=== PATIENT | male | born 1950 | race Caucasian/White ===

== ENCOUNTER 2019-12-26 01:03 | Emergency (ER) | payer MEDICARE, SELFPAY ==
--- NOTE | ~2019-12-26 | CT_ITS ---
EXAMINATION: CT abdomen pelvis wo con DATE: 12/26/2019 02:06 INDICATION: Bilateral flank pain TECHNIQUE: Computed tomography (CT) of the abdomen and pelvis was performed without intravenous contr ast. Automated exposure control and iterative reconstruction technique were employed. The dose-length product was 1281.91 mGy-cm. COMPARISON: None FINDINGS: Mild bibasilar atelectasis, right greater than left. Heart size is normal. Atherosclerotic coronary a rtery calcification. No pericardial or pleural effusion. Gallstone at the neck of the otherwise wolfgang l-appearing gallbladder. Liver, spleen, pancreas and bilateral adrenal glands are normal. Small amoun t of gas within a duodenal diverticulum posterior to the head of the pancreas. Kidneys and ureters ar e normal with no urolithiasis, hydroureteronephrosis or perinephric/ureteral stranding. Matthew cathete r within the decompressed bladder. There is mild inflammatory stranding surrounding the bladder which could be due to cystitis either acute or chronic. Mild scattered colonic diverticulosis without crista cent inflammatory change to suggest diverticulitis. Small bowel and appendix are normal. No free intr aperitoneal gas or fluid. No pathologically enlarged abdominal or pelvic lymphadenopathy. Moderate claudia mbar spondylosis. IMPRESSION: 1. Mild inflammatory stranding surrounding the bladder which is decompressed around a Matthew catheter which could be related to cystitis either acute or chronic. Correlate with urinalysis. 2. No urolithiasis or other acute intra-abdominal/pelvic process. 3. Cholelithiasis. Reviewed, dictated and finalized at location A. IMPRESSION: 1. Mild inflammatory stranding surrounding the bladder which is decompressed ar ound a Matthew catheter which could be related to cystitis either acute or chroni c. Correlate with urinalysis. 2. No urolithiasis or other acute intra-abdominal/pelvic process. 3. Cholelithiasis.
[2019-12-26 01:16] VITALS: BP 211/101; PULSE 56; RESP 18; TEMP 37.2; O2SAT 98
--- NOTE | 2019-12-26 01:23 | ED.MALEGU ---
HPI - Male Genitourinary General Chief complaint: Urogenital-Male Stated complaint: I think i'm in kidney failure Time Seen by Provider: 12/26/19 01:06 Source: patient Mode of arrival: ambulatory Limitations: no limitations History of Present Illness HPI Narrative: Patient is a 69-year-old male complaining of unable to urinate for the past 48 hours. Patient states he has a history of BPH and has had similar episodes in the past. Patient states he has an appointment to see his urologist this week for his BPH. Patient also complaining of bilateral flank pain. Patient denies any nausea or vomiting, diarrhea or fever. Patient denies hematuria. Related Data Home Medications Medication Instructions Recorded Confirmed aspirin 81 mg tablet,delayed 81 mg PO DAILY 02/07/19 release atenolol 100 mg tablet 100 mg PO DAILY 02/07/19 Allergies Allergy/AdvReac Type Severity Reaction Status Date / Time ramipril Allergy Unknown Verified 11/21/15 14:42 No Known Allergies Allergy Unverified 10/25/12 12:56 Review of Systems Review of Systems: All systems reviewed & are unremarkable except as noted in HPI and below Constitutional: Constitutional: Denies body ache(s), Denies chills, Denies excessive sweating, Denies fatigue, Denies fever(s), Denies headache(s), Denies lethargy, Denies malaise, Denies weakness and Denies weight loss Eyes: Eyes: Denies blurry vision, Denies change in vision and Denies loss of vision ENT: Denies dizziness, Denies ear discharge, Denies headache(s), Denies lip swelling, Denies epistaxis, Denies nasal congestion, Denies neck pain, Denies throat swelling and Denies tongue swelling Cardiovascular: Cardiovascular: Denies chest pain, Denies chest pain at rest, Denies chest pain with activity, Denies diaphoresis, Denies rapid heart rate, Denies edema, Denies irregular heart rhythm, Denies lightheadedness, Denies palpitations, Denies dyspnea and Denies dyspnea on exertion Respiratory: Respiratory: Denies chest congestion, Denies cough, Denies hemoptysis, Denies dyspnea and Denies dyspnea on exertion Gastrointestinal: Gastrointestinal: Denies abdominal pain, Denies melena, Denies hematochezia, Denies diarrhea, Denies nausea, Denies vomiting and Denies hematemesis Musculoskeletal: Musculoskeletal: Denies abnormal gait, Denies deformity, Denies joint swelling, Denies limited range of motion, Denies neck pain and Denies numbness Neurologic: Denies Abnormal speech present, Denies abnormal gait, Denies confusion, Denies dizziness, Denies headache(s), Denies focal weakness, Denies loss of vision, Denies numbness, Denies Other visual disturbances, Denies Sensory deficit (Neuro) and Denies weakness Psychiatric: Psychiatric: Denies confusion, Denies depression, Denies auditory hallucinations, Denies homicidal ideation and Denies suicidal ideation Endocrine: Endocrine: Denies cold intolerance, Denies excessive sweating, Denies fatigue, Denies heat intolerance and Denies palpitations Hematologic/Lymphatic: Hematologic/Lymphatic: Denies easy bleeding and Denies easy bruising Allergic/Immunologic: Allergic/Immunologic: Denies lip swelling, Denies throat swelling and Denies tongue swelling [facility] Social History Social History Smoking status: Never smoker Alcohol intake: current Exam Const: General: cooperative, healthy appearing, comfortable, no acute distress, well developed, alert and awake; No confusion Orientation/consciousness: oriented to person, oriented to place, oriented to time, patient oriented x3 and No confusion Limitations: no limitations HENMT: Head: normal to inspection, normocephalic and atraumatic Ears: hearing grossly normal bilaterally, TM normal on the right and TM normal on the left General nose exam: Normal external nose present, Normal nares present and No nasal discharge present Face and sinus: normal facial exam Mouth: Yes Normal oral
[2019-12-26 01:42] LABS: Basophils Percent Auto 0.2 % (0.2-1.2); Eosinophils Percent Auto 0.3 % (0-4.4); Hematocrit 45.1 % (42.0-52.0); Hemoglobin 15.1 g/dL (14.0-18.0); Immature Granulocyte Absolute 0.05 K/mm3 (0.00-0.031); Immature Granulocyte Percent A 0.4 % (0-0.5); Lymphocytes Absolute Auto 0.74 K/mm3 (0.9-3.2); Lymphocytes Percent Auto 6.5 % (18.3-44.2); Mean Corpuscular HGB Conc 33.5 g/dl (32-36); Mean Corpuscular Hemoglobin 30.6 pg (26-34); Mean Corpuscular Volume 91.5 fl (80-100); Mean Platelet Volume 10.9 fl (7.4-10.4); Monocytes Absolute Auto 0.7 K/mm3 (0.1-0.6); Monocytes Percent Auto 6.3 % (2.6-8.5); Neutrophils Absolute Auto 9.9 K/mm3 (1.3-6.7); Neutrophils Percent Auto 86.3 % (45.5-73.1); Platelet Count Result 241 k/mm3 (150-375); Red Blood Count 4.93 M/mm3 (4.6-6.20); White Blood Count 11.5 K/mm3 (4.5-10.0)
[2019-12-26 01:46] LABS: Add Urine Microscopic? YES; Appearance Urine Clear (Clear); Bilirubin Urine Negative (Negative); Blood Urine 1+ (Negative); Color Urine Straw (Yellow); Glucose Urine UA Negative (Negative); Ketones Urine Negative (Negative); Leukocyte Esterase Ur Negative LEU/UL (Negative); Mucus Urine Rare /lpf; Nitrate Urine Negative (Negative); Protein Urine Negative (Negative); Specific Grav Ur 1.014 (1.001-1.035); Urobilinogen Urine Negative mg/dL (<2.0)
--- NOTE | 2019-12-26 01:49 | PC.NURSE ---
Matthew catheter inserted per provider order. 1600ml urine returned. Pt states he feels significant relief.
[2019-12-26 01:59] LABS: Anion Gap 7 mmol/L (8-16); Blood Urea Nitrogen 22 mg/dL (9-20); Calcium 9.6 mg/dL (8.4-10.2); Carbon Dioxide 29 mmol/L (22-30); Chloride 100 mmol/L (98-107); Estimated CRCL calculation 76 ml/min; Estimated Glomerular Filt Rate > 60; Glucose 142 mg/dL (75-110); Sodium 136 mmol/L (137-145)
--- NOTE | 2019-12-26 02:02 | PC.NURSE ---
Pt at CT scan at this time
[2019-12-26 02:15] VITALS: BP 157/81; PULSE 53; RESP 16; O2SAT 100
--- NOTE | 2019-12-26 02:48 | PC.NURSE ---
Leg bag placed per MD order for pt discharge. Pt to keep oliveros in place until he sees his urologist. Pt educated on oliveros care.
[2019-12-26 02:49] VITALS: BP 170/85; PULSE 50; RESP 16; TEMP 36.8; O2SAT 97
== END 2019-12-26 02:54 | disposition home or self-care (01) ==
PROVIDERS: Emergency Provider Emergency Medicine; PCP Internal Medicine
DX: R33.9 Retention of urine, unspecified (principal)
CPT/HCPCS: 36415; 51702; 74176; 80048; 81001; 85025; 99284

== ENCOUNTER 2020-01-16 08:44 | Outpatient (CLI) | payer MEDICARE, SELFPAY ==
--- NOTE | ~2020-01-16 | CT_ITS ---
EXAMINATION: CT abdomen pelvis w con EXAM DATE: 01/16/2020 09:38 INDICATION: Prostate cancer prostate cancer. TECHNIQUE: Spiral CT of the abdomen and pelvis was performed following intravenous injection of 100 m L Omnipaque 350. Axial, coronal and sagittal images were reviewed. The dose-length product (DLP) fo r this examination was 1285.67 mGy-cm. The exposure was tailored according to patient size (auto mA exposure control), and iterative reconstruction (ASIR) was used as additional dose reduction techniqu e. Comparison is made to prior examination from 12/26/2019. FINDINGS: The liver, spleen, adrenal glands and pancreas are unremarkable. There is cholelithiasis w ithin an otherwise unremarkable gallbladder. No evidence of obstructive biliary disease. Portal and splenic veins are patent. Kidneys enhance symmetrically. There is no hydronephrosis. The prostat e is unremarkable. The bladder is unremarkable. There is no retroperitoneal or pelvic lymphadenopat hy. There is mild to moderate scattered arteriosclerotic disease. The appendix is normal. Small duodenal diverticulum. The stomach and small bowel are unremarkable. Th ere is mild scattered colonic diverticulosis. There is no adjacent inflammatory change to suggest di verticulitis. There is expected amount of colonic stool. No free intraperitoneal gas. The heart i s normal in size. There are no pericardial or pleural effusions. The lung bases are unremarkable. There are no osteoblastic or osteolytic lesions identified. IMPRESSION: 1. No evidence of metastatic disease. 2. Colonic diverticulosis. 3. Cholelithiasis. Reviewed, dictated and finalized at location A. [employer]
--- NOTE | ~2020-01-16 | NM_ITS ---
EXAMINATION: NM bone scan whole body DATE: 01/16/2020 13:07 INDICATION: Prostate cancer. TECHNIQUE: 23.6 mCi Tc-99m HDP was administered intravenously. Delayed whole-body scintigrams were o btained. COMPARISON: CT abdomen and pelvis 01/16/2020, chest 2 views 01/16/2020 FINDINGS: There is joint-centered increased activity in the right ankle and left foot without radiogr aphic comparison, likely osteoarthritis. There is joint-centered increased activity in the spine, con sistent with osteoarthritis. There is joint-centered increased activity in the wrists and hands witho ut radiographic comparison, likely osteoarthritis. There is joint-centered increased activity in the acromioclavicular joints and right sternoclavicular joint, consistent with osteoarthritis. IMPRESSION: 1. No evidence of metastatic disease. Reviewed, dictated and finalized at location B. OGRAPHER MODEL
--- NOTE | ~2020-01-16 | XR_ITS ---
EXAMINATION: XR chest 2V EXAM DATE: 01/16/2020 09:28 INDICATION: Prostate cancer. TECHNIQUE: Frontal and lateral projections of the chest obtained and reviewed. Comparison is made to prior examination from 10/14/2019. FINDINGS: The lungs are clear. There are no pleural effusions. The cardiomediastinal silhouette is within normal limits. There is no pneumothorax suspected. There are no osteoblastic or osteolytic l esions identified. Patient has diffuse idiopathic skeletal hyperostosis (DISH). IMPRESSION: No acute cardiopulmonary findings. Reviewed, dictated and finalized at location A. ATER CHIEF
== END 2020-01-16 08:45 | disposition home or self-care (01) ==
PROVIDERS: PCP Internal Medicine; Visit Provider Urology
DX: C61 Malignant neoplasm of prostate (principal); K57.90 Diverticulosis of intestine, part unspecified, without perforation or abscess without bleeding; K80.20 Calculus of gallbladder without cholecystitis without obstruction
CPT/HCPCS: 71046; 74177; 78306; A9561; Q9967

== ENCOUNTER 2020-02-11 12:01 | Outpatient (CLI) | payer MEDICARE, SELFPAY ==
--- NOTE | 2020-02-11 13:23 | ECG_ITS ---
Measurements Intervals [place] Rate: 51 P: 45 MO: 157 QRS: 2 QRSD: 100 T: 24 QT: 412 QTc: 382 Interpretive Statements SINUS BRADYCARDIA CONSIDER INFERIOR INFARCT, AGE INDETERMINATE BASELINE ARTIFACT- I, II, III, AVR, AVL, AVF, V1-V6 ABNORMAL ECG Electronically Signed On 02-11-2020 14:13:05 WINCH STRIPPER by William Osuna D.O.
[2020-02-11 14:10] LABS: Add Urine Microscopic? NO; Appearance Urine Clear (Clear); Bilirubin Urine Negative (Negative); Blood Urine Negative (Negative); Color Urine Yellow (Yellow); Glucose Urine UA Negative (Negative); Ketones Urine Negative (Negative); Leukocyte Esterase Ur Negative LEU/UL (Negative); Nitrate Urine Negative (Negative); Protein Urine Negative (Negative); Specific Grav Ur 1.017 (1.001-1.035); Urobilinogen Urine Negative mg/dL (<2.0)
[2020-02-11 14:15] LABS: Basophils Percent Auto 0.5 % (0.2-1.2); Eosinophils Absolute Auto 0.1 K/mm3 (0-0.3); Eosinophils Percent Auto 2.2 % (0-4.4); Hematocrit 42.1 % (42.0-52.0); Hemoglobin 14.3 g/dL (14.0-18.0); Immature Granulocyte Absolute 0.01 K/mm3 (0.00-0.031); Immature Granulocyte Percent A 0.2 % (0-0.5); Lymphocytes Percent Auto 20.1 % (18.3-44.2); Mean Corpuscular Hemoglobin 30.7 pg (26-34); Mean Corpuscular Volume 90.3 fl (80-100); Mean Platelet Volume 11.6 fl (7.4-10.4); Monocytes Absolute Auto 0.8 K/mm3 (0.1-0.6); Monocytes Percent Auto 11.6 % (2.6-8.5); Neutrophils Absolute Auto 4.2 K/mm3 (1.3-6.7); Neutrophils Percent Auto 65.4 % (45.5-73.1); Platelet Count Result 212 k/mm3 (150-375); Red Blood Count 4.66 M/mm3 (4.6-6.20); Red Cell Distribution Width 13.2 % (11.5-14.5); White Blood Count 6.5 K/mm3 (4.5-10.0)
[2020-02-11 14:20] LABS: Alanine Aminotransferase 45 U/L (4-50); Albumin Level 3.8 g/dL (3.5-5.1); Alkaline Phosphatase 87 U/L (38-126); Anion Gap 1 mmol/L (8-16); Aspartate Amino Transferase 37 U/L (17-59); Bilirubin,Total 0.4 mg/dL (0.2-1.3); Blood Urea Nitrogen 20 mg/dL (9-20); Calcium 9.1 mg/dL (8.4-10.2); Carbon Dioxide 29 mmol/L (22-30); Chloride 105 mmol/L (98-107); Estimated Glomerular Filt Rate > 60; Glucose 158 mg/dL (75-110); Potassium 4.4 mmol/L (3.4-5.0); Sodium 135 mmol/L (137-145)
[2020-02-11 14:21] LABS: INR 0.9; Prothrombin Time 13.2 Seconds (11.1-14.7)
[2020-02-11 14:22] LABS: Partial Thromboplastin Time 24.5 SECONDS (22.3-36.8)
== END 2020-02-11 12:02 | disposition home or self-care (01) ==
LOC: ANHSURGERY 12:03
PROVIDERS: PCP Internal Medicine; Visit Provider Urology
DX: Z01.818 Encounter for other preprocedural examination (principal); C61 Malignant neoplasm of prostate; R00.1 Bradycardia, unspecified; Z51.81 Encounter for therapeutic drug level monitoring; Z79.899 Other long term (current) drug therapy
CPT/HCPCS: 36415; 80053; 81003; 85025; 85610; 85730; 86850; 86900; 86901; 93005

== ENCOUNTER 2020-02-18 02:22 | Outpatient (CLI) | payer MEDICARE, SELFPAY ==
[2020-02-18 18:35] LABS: SARS-CoV-2 RNA PCR Negative
== END 2020-02-18 02:23 | disposition home or self-care (01) ==
PROVIDERS: PCP Internal Medicine; Visit Provider Urology
DX: Z01.812 Encounter for preprocedural laboratory examination (principal); Z20.828 Contact with and (suspected) exposure to other viral communicable diseases
CPT/HCPCS: 87635; C9803; U0003

== ENCOUNTER 2020-02-21 00:58 | Day surgery (SDC) | payer MEDICARE, SELFPAY ==
--- NOTE | 2020-02-08 08:24 | P.HP_ITS ---
H&P: HPI History of Present Illness Date/Time: 02/08/20 08:24 Chief complaint: Prostate Cancer Narrative: Deandre Yoo is a 69 year old male with a recent PSA elevation to 23. Prostate ultrasound revealed the the prostate volume of 56 g. Biopsy revealed adenocarcinoma Bony 8 and 9 in [address] scan of the abdomen and pelvis, bone scan and chest x-ray showed no evidence of metastatic disease. After careful discussion of therapeutic options including active surveillance, radiation therapy in its various forms, androgen deprivation and robotic prostatectomy he has elected for the latter. He is aware that this may require a multiple modality approach to management of his high risk prostate cancer. He is aware of the risk of this procedure including, but not limited to, adverse cardiopulmonary events, morphology, rectal injury, erectile dysfunction and urinary incontinence. Review of Systems Cardiovascular: Cardiovascular: Denies chest pain, Denies lightheadedness, Denies palpitations and Denies dyspnea Respiratory: Respiratory: Denies dyspnea Gastrointestinal: Gastrointestinal: Denies diarrhea, Denies nausea and Denies vomiting Genitourinary: Genitourinary: Denies hematuria and Denies dysuria Endocrine: Endocrine: Denies palpitations [facility] Social History Social History (Reviewed 11/01/19 @ 14:57 by Tita Alexandre, [facility] [address]) Smoking status: Never smoker Alcohol intake: current Meds Home Medications and Allergies Home Medications Medication Instructions Recorded Confirmed Type aspirin 81 mg tablet,delayed 81 mg PO DAILY 02/07/19 History release ezetimibe 10 mg tablet 10 mg PO DAILY #30 tablet 11/01/19 11/01/19 Rx icosapent ethyl 1 gram capsule 1 gm PO BID #60 cap 11/01/19 11/01/19 Rx levothyroxine 112 mcg tablet 112 mcg PO DAILY #90 tablet 11/01/19 11/01/19 Rx metformin 500 mg tablet 500 mg PO BID #60 tablet 12/17/19 Rx cephalexin [Keflex] 250 mg PO Q12H #6 cap 12/26/19 Rx atenolol 100 mg tablet 100 mg PO DAILY #90 tablet 01/24/20 Rx Allergies Allergy/AdvReac Type Severity Reaction Status Date / Time ramipril Allergy Unknown Verified 11/21/15 14:42 No Known Allergies Allergy Unverified 10/25/12 12:56 Exam Const: General: no acute distress Resp: Effort & Inspection: normal respiratory effort GI: Inspection: non-distended GI Palp: No abdominal tenderness and No Guarding due to palpation present (GI) Auscultation: normal bowel sounds Assessment and Plan Assessment and plan (1) Prostate cancer: Code(s): C61 - Malignant neoplasm of prostate Status: Acute Assessment and Plan: * Robotic assisted radical retropubic prostatectomy with bilateral pelvic lymphadenectomy.
[2020-02-11 12:14] VITALS: BMI 37.2
[2020-02-11 13:21] VITALS: BP 164/82; PULSE 54; RESP 16; TEMP 37.2; O2SAT 97
[2020-02-21] VITALS (11 sets, daily range): BP systolic 147–205; BP diastolic 67–99; PULSE 57–79; RESP 12–20; TEMP 36.2–37.1; O2SAT 91–100
--- NOTE | 2020-02-21 06:29 | WPDHPUPDATE1 ---
History and Physical Update Update Date/Time: 02/21/20 06:29 History and Physical has been reviewed, including an updated exam of the patient. There are NO changes in the patient's condition. Risks, benefits, and alternatives have been discussed and questions answered. Patient agrees to proceed with procedure.
[2020-02-21 06:52] LABS: Glucose Point of Care 84 (65-105)
[2020-02-21] MEDS: LACTATED RINGERS 1,000 ML 30 ML IV CONT ×2 (06:55→12:18)
--- NOTE | 2020-02-21 07:00 | WPDANESEPPF ---
Anes - Initial Pre Proc Eval Procedure: Operation Date: 02/21/20 07:30 Proposed Procedures p Robotic Assisted Laparoscopic Prostatectomy With Bilateral Pelvic Lymph Node Dissection - Corona Sanchez MD Date/Time: 02/21/20 07:00 Surgeon: Corona Sanchez MD Pre Op Diagnosis: Prostate Cancer Patient Data Age: 69 Gender: M Height: 5 ft 9 in Weight: 114.3 kg Last Vital Signs Temp 37.2 C 02/11/20 13:21 Pulse 54 L 02/11/20 13:21 Resp 16 02/11/20 13:21 BP 164/82 H 02/11/20 13:21 Pulse Ox 97 02/11/20 13:21 Allergies Allergy/AdvReac Type Severity Reaction Status Date / Time Tcuslvr-Rne-Ldb Reductase Allergy Severe Muscle Pain Verified 02/21/20 06:37 Inhibitor metformin AdvReac Mild Diarrhea Verified 02/21/20 06:37 NSAIDS (Non-Steroidal AdvReac Mild Gastrointestinal Verified 02/21/20 06:37 Anti-Inflamma Upset Home Medications Medication Instructions Recorded Confirmed Type aspirin 81 mg tablet,delayed 81 mg PO QNOON 02/07/19 02/21/20 History release levothyroxine 112 mcg tablet 112 mcg PO DAILY #90 tablet 11/01/19 02/21/20 Rx alogliptin 25 mg PO QPM 02/11/20 02/21/20 History atenolol 125 mg PO QPM 02/11/20 02/21/20 History multivit with min-folic acid 1 tablet PO DAILY 02/11/20 02/21/20 History [Adult One Daily Multivitamin] omega 3-lrm-hji-fish oil [Fish Oil] 1 cap PO DAILY 02/11/20 02/21/20 History omeprazole 20 mg PO DAILY 02/11/20 02/21/20 History Laboratory Tests 02/21/20 06:51 POC Capillary Glucose 84 mg/dl mg/dl (65-105) Patient hx anesthesia problems: post op nausea/vomiting (50 years ago) Family hx anesthesia problems: none PMFSH Social History Social History Smoking status: Never smoker Alcohol intake: current Living arrangements: with family Spiritual care concerns: No Anes - Eval Final PreProcedure Day of Procedure 02/21/20 07:00 Patient weight: obese Heart: regular rate and rhythm Lungs: clear to auscultation Airway: Mallampati scale Neurological: alert and oriented Last oral intake: >/= 8 hours ASA classification: III Emergent: no Anesthetic plan: proceed Anesthesia type and monitoring: general ETT and standard monitoring Informed Consent: The patient's anesthetic plan and its attendant risks and benefits were discussed with the patient/family/POA. Questions were solicited and answers provided to the satisfaction of the patient/family/POA.
[2020-02-21] MEDS: ceFAZolin 2 GM/D5W 50 ML 2 GM/50 ML BAG IVPB (07:28)
--- NOTE | 2020-02-21 11:52 | PM.PROC ---
Procedure Note - Detailed Date of procedure: 02/21/20 Pre-op diagnosis: Prostate Cancer Post-op diagnosis: same Procedure performed: 1. Robotic assisted radical prostatectomy 2. Bilateral pelvic lymphadenectomy Description of procedure: The patient was brought to the operative suite, where he was prepped and draped in routine sterile fashion while in a dorsal lithotomy, deep Trendelenburg position. A supraumbilical 10 mm trocar was placed after insufflation of the abdomen with a Veress needle. Three robotic ports were then placed under direct vision. Two of these were placed in the right lower quadrant - 10 cm and 20 cm lateral to, and in line with, the umbilicus. A third robotic trocar was placed 10 cm to the left of the umbilicus, and 20 cm to the left of the umbilicus, a 12 mm standard laparoscopic trocar was placed to be used as an instruction assistant principal port. Lastly, a 5 mm trocar was placed in the left upper quadrant midway between the umbilicus and the left robotic trocar. Attention was then turned to the prostatectomy. I opted for a posterior approach in this patient. An incision was made in the parietal peritoneum along the posterior bladder/posterior prostate about 2 cm above the reflection of the peritoneum over the anterior rectum. The seminal vesicles and vas deferens were immediately identified. Dissection is undertaken in a fashion so as to avoid electrocautery as much as possible, particularly near the tips of the seminal vesicles. Dissection was also carried out in the midline so as to avoid any encounters with the ureters. The vas deferens and the seminal vesicles were dissected in their entirety to the base of the prostate. The plane anterior to Denoviller's fascia, anterior to the rectum and posterior to the prostate was then developed. I then dropped the bladder by incising the anterior parietal peritoneum just lateral to the median umbilical ligaments bilaterally. The bladder was dropped from the anterior abdominal and pelvic wall. The endopelvic fascia was identified and incised bilaterally, allowing for dissection of the posterior-lateral aspect of the prostate. On the left side, near the apex of the prostate, there is a suggestion of some adherence to pelvic sidewall. The puboprostatic ligaments were transected near their origin from the posterior pubic ramus. This posterior lateral dissection of the prostate is also undertaken in a fashion so as to avoid electrocautery as much as possible. The dorsal vein of the penis is then secured with an 0 -Vicryl ligature. Attention is then turned to the bladder neck. The anterior bladder neck is incised at the vesico-prostatic junction. The previously placed urethral catheter was drawn through the urethrotomy. A very small bladder neck was maintained throughout the remainder of this dissection. The posterior bladder neck was incised in a fashion so as to avoid any injury to the ureteral orifices. Again, the small aperture of the bladder neck was maintained. The previously dissected vas deferens and the seminal vesicles were brought through the posterior bladder neck incision. The lateral prostatic pedicles were then carefully dissected from the lateral aspect of the prostate bilaterally. The prostatic pedicles were secured with Weck clips and transected. The neurovascular bundles on the right side was carefully dissected from the posterior-lateral aspect of the prostate. Due to some perceived adherence of the posterior lateral aspect of the prostate on the left opted to sacrifice the left neurovascular bundle. The dorsal vein of the penis was incised with electrocautery. Using cold scissors, the urethra was incised. It was with this apical dissection there appeared to be gross adherence of prostatic tissue to the apex, left lateral pelvic wall and posteriorly to the anterior rectum. After withdrawing the previously placed urethral catheter, the posterior urethra was sharply incised, as was the rectaluret
[2020-02-21 12:24] LABS: Glucose Point of Care 143 (65-105)
[2020-02-21] MEDS: HYDROmorphone HCL INJ (*CRX) 1 MG/ML SYR 0.5 MG IV PUSH ×2 (13:08→13:13)
--- NOTE | 2020-02-21 13:20 | ADMGEN ---
This patient, Deandre Yoo, was admitted to Medical Room 258-01 from surgery. Patient/family oriented to hospital policies and general routines including ID bracelet, bed and alarms, visiting hours, pain management, procedures, bathroom and other care routines, personal items, smoking policy, room service/diet, and visiting hours. Reviewed plan of care Information on how to activate the Rapid Response Team has been discussed. Patient/Family are encouraged to report perceived risks to care and to ask questions if they do not understand what they are told or what they should do.
[2020-02-21] MEDS: MORPHINE SULFATE (*CRX) 2 MG/ML INJ 1 MG IV PUSH (14:04)
[2020-02-21] MEDS: LACTATED RINGERS 1,000 ML 125 ML IV CONT (14:04)
--- NOTE | 2020-02-21 17:30 | PC.NURSE ---
pt refusing for blood sugar to be checked and refusing any home meds at this time
--- NOTE | 2020-02-21 22:22 | PC.NURSE ---
pt refusing blood sugar checks at this time.
[2020-02-22] VITALS: BP 167/84; PULSE 69; RESP 20; TEMP 36.8; O2SAT 97
[2020-02-22 04:00] VITALS: BP 182/87; PULSE 83; RESP 22; TEMP 37; O2SAT 98
[2020-02-22] MEDS: LACTATED RINGERS 1,000 ML 125 ML IV CONT (04:38)
[2020-02-22 05:28] LABS: Hematocrit 39.8 % (42.0-52.0); Hemoglobin 13.5 g/dL (14.0-18.0)
[2020-02-22 05:44] LABS: Anion Gap 6 mmol/L (8-16); Blood Urea Nitrogen 17 mg/dL (9-20); Carbon Dioxide 32 mmol/L (22-30); Chloride 100 mmol/L (98-107); Estimated CRCL calculation 67 ml/min; Estimated Glomerular Filt Rate > 60; Glucose 129 mg/dL (75-110); Potassium 3.9 mmol/L (3.4-5.0); Sodium 138 mmol/L (137-145)
--- NOTE | 2020-02-22 07:17 | WPDUROPN2 ---
Progress Note: A&P Assessment and Plan (1) Prostate cancer: Code(s): C61 - Malignant neoplasm of prostate Status: Acute Assessment and Plan: Doing well POD #1 RALP. Increase diet/ambulation. Likely home later today. Scant/diminishing drainage - will remove. Subjective Subjective Date/Time Seen: 02/22/20 07:17 POD #1: RALP Comfortable, no n/v and minimal abd. discomfort Review of Systems Cardiovascular: Cardiovascular: Denies chest pain, Denies lightheadedness, Denies palpitations and Denies dyspnea Respiratory: Respiratory: Denies dyspnea Gastrointestinal: Gastrointestinal: Denies diarrhea, Denies nausea and Denies vomiting Genitourinary: Genitourinary: Denies hematuria and Denies dysuria Endocrine: Endocrine: Denies palpitations Exam Const: General: no acute distress Resp: Effort & Inspection: normal respiratory effort GI: Inspection: non-distended and other (incisions clean and dry) GI Palp: No abdominal tenderness and No Guarding due to palpation present (GI) Auscultation: normal bowel sounds Objective Data Vital Signs Vital Signs: Vital Signs - 24 hr 02/21/20 12:18 02/21/20 12:30 02/21/20 12:45 Temperature 97.2 F L Pulse Rate 79 66 64 Respiratory Rate 12 19 17 Blood Pressure 205/99 H 189/94 H 177/83 H Pulse Oximetry 97 100 97 02/21/20 13:00 02/21/20 13:14 02/21/20 13:16 Temperature Pulse Rate 64 65 67 Respiratory Rate 15 14 16 Blood Pressure 157/76 H 156/76 H 149/70 H Pulse Oximetry 97 100 91 02/21/20 13:31 02/21/20 14:01 02/21/20 15:01 Temperature 98.7 F Pulse Rate 65 63 57 L Respiratory Rate 16 18 18 Blood Pressure 156/79 H 151/80 H 160/73 H Pulse Oximetry 91 93 93 02/21/20 20:00 02/22/20 00:00 02/22/20 04:00 Temperature 98 F 98.2 F 98.6 F Pulse Rate 75 69 83 Respiratory Rate 20 20 22 H Blood Pressure 147/67 H 167/84 H 182/87 H Pulse Oximetry 98 97 98 Intake/Output Intake/Output: Intake & Output 02/19/20 02/20/20 02/21/20 02/22/20 23:59 23:59 23:59 23:59 Intake Total 1900 500 Output Total 970 0 Balance 930 -1550 Meds/Results Medications: Active Medications Generic Name Dose Route Start Last Admin Trade Name Freq PRN Reason Stop Dose Admin Acetaminophen 1,000 mg 02/21/20 18:43 Acetaminophen 500 Mg Tablet PO Q6H PRN Mild Pain (1-3) or Fever Atenolol 100 mg 02/21/20 18:00 02/21/20 18:45 Atenolol 50 Mg Tablet PO Not Given QPM NICHOLE Dextrose 12.5 gm 02/21/20 13:16 Dextrose 50% 25 Gm/50 Ml Syringe IV PUSH PRN PRN Hypoglycemia Protocol Glucagon 1 mg 02/21/20 13:16 Glucagon For Inj 1 Mg Vial IM PRN PRN Hypoglycemia Protocol Glucose 15 gm 02/21/20 13:16 Glucose Oral Gel 15 Gm Of Glucse In 37.5 Gm Tube PO PRN PRN Hypoglycemia Protocol Hyoscyamine 0.125 mg 02/21/20 13:16 Hyoscyamine Sulfate 0.125 Mg Tablet SUBLINGUAL Q4H PRN Bladder Spasm Dextrose 1,000 mls @ 100 mls/hr 02/21/20 13:16 Dextrose 5% 1,000 Ml IVPB PRN PRN Hypoglycemia Protocol Lactated Ringer's 1,000 mls @ 125 mls/hr 02/21/20 13:16 02/22/20 04:38 Lr - Lactated Ringers Iv IV CONT 125 mls/hr .Q8H NICHOLE Administration Insulin Aspart 2 - 5 units 02/21/20 17:00 02/21/20 17:30 Insulin Aspart (*Bkc) 100 Units/Ml SUB-Q Not Given TIDWM [facility] Protocol Levofloxacin 500 mg 02/22/20 09:00 Levofloxacin Tab 500 Mg Tablet PO DAILY [facility] Levothyroxine Sodium 112 mcg 02/22/20 06:30 02/22/20 06:18 Levothyroxine Sodium 112 Mcg Tablet PO Not Given DAILY@0630 [facility] Morphine Sulfate 1 mg 02/21/20 13:16 02/21/20 14:04 Morphine Sulfate (*Crx) 2 Mg/Ml Inj IV PUSH 1 mg Q2H PRN Administration Pain Rated 7-10 Naloxone HCl 0.1 mg 02/21/20 13:16 Naloxone Hcl 0.4 Mg/Ml Vial IV PUSH Q2M PRN Opiate Reversal Pantoprazole Sodium 40 mg 02/22/20 09:00 Pantoprazole 40 Mg Table
--- NOTE | 2020-02-22 07:37 | PC.NURSE ---
patient refused levothyroxine 02/22/2020 Dr. Anthony has been informed.
--- NOTE | 2020-02-22 09:33 | PM.DS ---
DS: Admitting Diagnosis Admitting Diagnosis Admitting Diagnosis: Prostate cancer DS: Discharge Diagnosis Discharge Diagnosis (1) Prostate cancer: Code(s): C61 - Malignant neoplasm of prostate Status: Acute (2) Essential (primary) hypertension: Code(s): I10 - Essential (primary) hypertension Status: Acute (3) History of TIA (transient ischemic attack): Code(s): Z86.73 - Personal history of transient ischemic attack (TIA), and cerebral infarction without residual deficits Status: Acute (4) Hyperlipidemia, unspecified: Qualifiers: Hyperlipidemia type: other hyperlipidemia Qualified Code(s): E78.49 - Other hyperlipidemia Code(s): E78.5 - Hyperlipidemia, unspecified Status: Acute (5) Hypothyroidism (acquired): Code(s): E03.9 - Hypothyroidism, unspecified Status: Acute (6) Type 2 diabetes mellitus with diabetic neuropathy, without long-term current use of insulin: Code(s): E11.40 - Type 2 diabetes mellitus with diabetic neuropathy, unspecified Status: Acute (7) Overweight: Onset Date: 09/20/16 Code(s): E66.3 - Overweight Status: Acute DS: Summary Hospital Course Hospital Course: This patient was admitted on the morning of his planned robotic prostatectomy. This procedure was uneventful, as was his postoperative course. By the evening of the procedure he was sitting at the bedside in tolerating a liquid diet. The following morning he was ambulating freely and tolerating regular food. His catheter drainage remained essentially clear throughout. His postoperative hemoglobin and serum creatinine were unremarkable. At the time of discharge he has been instructed in appropriate care for his Matthew catheter with both a leg bag and bedside bag. He will be discharged with plans to follow-up in 1 week with a cystogram. Time Spent with Patient Time attestation: Total time spent providing and/or coordinating discharge services:15 min. Condition on discharge: good This patient was admitted on the morning of his planned robotic prostatectomy. This procedure was uneventful, as was his postoperative course. By the evening of the procedure he was sitting at the bedside in tolerating a liquid diet. The following morning he was ambulating freely and tolerating regular food. His catheter drainage remained essentially clear throughout. His postoperative hemoglobin and serum creatinine were unremarkable. At the time of discharge he has been instructed in appropriate care for his Matthew catheter with both a leg bag and bedside bag. He will be discharged with plans to follow-up in 10 days with a cystogram. Exam Const: General: no acute distress Resp: Effort & Inspection: normal respiratory effort GI: Inspection: non-distended GI Palp: No abdominal tenderness and No Guarding due to palpation present (GI) Auscultation: normal bowel sounds DS: Data Data Completed and Pending Pending studies at discharge: Pending at discharge 02/21/20 09:24 Surgical [PTH] Routine Labs on day of discharge: Labs from last 24 hours 02/22/20 02/22/20 02/21/20 05:05 05:05 12:22 Hgb 13.5 L Hct 39.8 L Sodium 138 Potassium 3.9 Chloride 100 Carbon Dioxide 32 H Anion Gap 6 L BUN 17 Creatinine 1.10 Estim Creat Clear Calc 67 Estimated GFR > 60 Glucose 129 H POC Capillary Glucose 143 H Calcium 9.0 Discharge Plan Discharge Patient Disposition: Home, Self-Care Discharge Instructions: 1) Matthew catheter -> leg bag / bedside bag at night. 2) No lifting/straining >15lbs. x3 weeks. 3) No driving x1-week. 4) Resume normal, pre-operative diet. 5) My office will contact regarding follow-up in 1-week with cystogram. Stand Alone Forms: General Discharge Instructions Discharge Medications: New ciprofloxacin HCl 500 mg tablet 500 mg PO Q12H Qty: 10 RF: 0 docusate sodium [Co
== END 2020-02-22 09:51 | disposition home or self-care (01) ==
LOC: ANHSURGERY 06:02 → ANH2MED 13:49
PROVIDERS: PCP Internal Medicine; Visit Provider Urology
PROC: 0VT04ZZ Resection of Prostate, Percutaneous Endoscopic Approach (ICD-10-PCS; CPT 55867; principal; 2020-02-21 07:30)
DX: C61 Malignant neoplasm of prostate (principal); E03.9 Hypothyroidism, unspecified; Z79.82 Long term (current) use of aspirin; Z79.84 Long term (current) use of oral hypoglycemic drugs; E66.9 Obesity, unspecified; Z68.35 Body mass index [BMI] 35.0-35.9, adult
CPT/HCPCS: 55866; 38571; S2900; 36415; 80048; 80053; 81003; 85014; 85018; 85025; 85610; 85730; 86850; 86900; 86901; 87635; 88305; 88307; 88309; 88342; 93005; A9270; C9803; J0131; J0330; J0690; J1100; J1170; J1200; J2250; J2270; J2405; J2704; J2710; J3010; J7030; J7120; Q9968; U0003

== ENCOUNTER 2020-03-03 11:02 | Outpatient (CLI) | payer MEDICARE, SELFPAY ==
--- NOTE | ~2020-03-03 | XR_ITS ---
EXAMINATION: CYSTOGRAM DATE: 03/03/2020 11:48 INDICATION: Bladder cancer follow-up TECHNIQUE: Initial turkey egg gatherer radiograph of the pelvis was performed. There was retrograde administration of Omnipaque 350 mixed with saline contrast into patient's existing oliveros catheter. Fluoroscopic asad ges of the pelvis were obtained. A post-void postoperative image was also performed. Fluoroscopy expo sure time was 1.2 minutes. A total of 12 fluoroscopic images were recorded. FINDINGS: Line there is localized extraluminal accumulation of contrast posteriorly at the base of th e bladder consistent with bladder leak at the prostatectomy bed. There is a small post void residual of contrast in the bladder which may be secondary to chronic outlet obstruction. Severe lower lumbar facet osteoarthritis. IMPRESSION: Bladder leak extending posteriorly at the prostatectomy bed. Reviewed, dictated and finalized at location A. O INSPECTOR
== END 2020-03-03 11:03 | disposition home or self-care (01) ==
PROVIDERS: PCP Internal Medicine; Visit Provider Urology
DX: C61 Malignant neoplasm of prostate (principal)
CPT/HCPCS: 51600; 74430; Q9967

== ENCOUNTER 2020-06-18 17:19 | Outpatient (CLI) | payer MEDICARE, SELFPAY | END 2020-06-18 17:20 | disposition home or self-care (01) | LOC: ANHCOVIDVC 17:19 | PROVIDERS: PCP Internal Medicine | DX: Z23 Encounter for immunization (principal) | CPT/HCPCS: 0001A; 91300 ==

== ENCOUNTER 2020-07-09 17:16 | Outpatient (CLI) | payer MEDICARE, SELFPAY | END 2020-07-09 17:17 | disposition home or self-care (01) | LOC: ANHCOVIDVC 17:16 | PROVIDERS: PCP Internal Medicine | DX: Z23 Encounter for immunization (principal) | CPT/HCPCS: 0002A; 91300 ==

== ENCOUNTER 2022-01-29 19:20 | Emergency (ER) | payer MEDICARE, SELFPAY | END 2022-01-29 21:13 | disposition left against medical advice (07) | PROVIDERS: PCP Internal Medicine | DX: Z53.21 Procedure and treatment not carried out due to patient leaving prior to being seen by health care provider (principal) | CPT/HCPCS: 99199 ==

== ENCOUNTER 2022-02-05 15:03 | Outpatient (CLI) | payer MEDICARE, SELFPAY ==
--- NOTE | ~2022-02-05 | CT_ITS ---
EXAMINATION: CT abdomen pelvis wo con DATE: 02/05/2022 15:30 INDICATION: Left flank pain. TECHNIQUE: Computed tomography (CT) of the abdomen and pelvis was performed without intravenous contr ast. The dose-length product was 1255.70 mGy-cm. Automated exposure control and iterative reconstruct ion technique were employed. COMPARISON: CT dated 01/16/2020. FINDINGS: Lung bases are unremarkable. No significant pleural or pericardial effusion. Heart size nor mal. The liver, spleen, pancreas, adrenal glands aren't right kidney are unremarkable. There is mild left hydroureteronephrosis with mild periureteral edema. No obstructing stone or mass is seen. Prosta te gland is enlarged. Cannot exclude bladder wall thickening. There appears to be a stone at the blad smita neck, possibly recently passed. There is a bladder stone near the fundus. Gallstones. Nonobstructive bowel pattern. Normal appendix. No free air or free fluid. There is mild p erivesical stranding suggesting cystitis. Mild bladder wall thickening posteriorly. IMPRESSION: 1. Bladder stones. Mild left hydroureteronephrosis with periureteral edema, likely sequela of recentl y passed stone. Ascending urinary tract infection not excluded. 2: Enlarged prostate gland. Mild bladder wall thickening which may be due to outlet obstruction or c ystitis. 3: Gallstones. Reviewed, dictated and finalized at location A. NERET PERSON IMPRESSION: 1. Bladder stones. Mild left hydroureteronephrosis with periureteral edema, lik dena sequela of recently passed stone. Ascending urinary tract infection not exc luded. 2: Enlarged prostate gland. Mild bladder wall thickening which may be due to o utlet obstruction or cystitis. 3: Gallstones.
--- NOTE | ~2022-02-05 | XR_ITS ---
XR abdomen/kub 1V DATE: 02/05/2022 15:40 INDICATION: Left flank pain. Possible kidney stones. TECHNIQUE: 2 supine AP views of the abdomen COMPARISON: 02/05/[address] abdomen pelvis FINDINGS: No apparent renal calcification is noted. No apparent calcification overlying the course of the ureters. There is some gas containing nondilated small bowel segments which may be due to mild adynamic ileus or aerophagia. No visceromegaly is evident. Degenerative changes of the thoracic and lumbar spine. IMPRESSION: Nonspecific abdomen Reviewed, dictated and finalized at Location A. Reviewed, dictated and finalized at location B. ENTIALING ASSISTANT IMPRESSION: Nonspecific abdomen
== END 2022-02-05 15:04 | disposition home or self-care (01) ==
PROVIDERS: PCP Internal Medicine; Visit Provider Nurse Practitioner Family
DX: K80.80 Other cholelithiasis without obstruction (principal); N21.0 Calculus in bladder; N13.30 Unspecified hydronephrosis; N40.0 Benign prostatic hyperplasia without lower urinary tract symptoms
CPT/HCPCS: 74018; 74176

== ENCOUNTER 2022-02-25 01:15 | Day surgery (SDC) | payer MEDICARE, SELFPAY ==
[2022-02-19 11:43] VITALS: BMI 37.0
--- NOTE | 2022-02-19 12:01 | PC.NURSE ---
Report to the Outpatient Waiting Room, entrance under the green pavilion located off [facility], at time __1000 on date _02/25/22 . Planned Procedure Time: ___1200 . Time changes happen often and if your time is changed the preop area will call you the afternoon before. - You and your visitor will be asked to self-screen and do not enter if you have any COVID symptoms. - Only one visitor is requested with a max of two and NO children visitors are allowed at this time. - The patient visitor may be requested to leave or wait in car when not with patient due to distancing restrictions. - A mask is optional within the hospital. Patients may have clear liquids (water, carbonated beverages, clear teas, apple juice) until 3 hours prior to surgery (0900 AM) with a maximum of 20 ounces. - No food from midnight until time of surgery - Infants may have breast milk until 4 hours before surgery, formula 6 hours prior to surgery. - Children will be allowed to drink immediately following surgery. If applicable, please bring a bottle or sippy cup to assist with drinking. Juice, water, soda, and popsicles are readily available. For infants on formula, please bring formula the day of surgery. Pacifiers are allowed. Take the following medications with a SIP of water the morning of surgery: __LEVOTHYROXINE, PAIN MED IF NEEDED__ Medications to discontinue per physician _ASPIRIN, VITAMINS, SUPPLEMENTS PER DR. WHARTON'S INSTRUCTIONS_ Date to take last dose____ Please no make-up, nail australian, hairspray, perfume, deodorant, or body powder the day of surgery. No jewelry (including any body piercings) or valuables the day of surgery, leave them at home. Please take a shower or bath the night before, or the morning of, surgery with an antibacterial soap. Wear comfortable, loose fitting clothing. Children are encouraged to wear pajamas. - Jewelry must be removed prior to entering the operating room. Rings and piercings that are not removed may be cut off. - The hospital will not accept responsibility for valuables. - Please leave all valuables, including medications, at home the day of surgery. If you are going home after surgery, a licensed van cdl driver must drive you home. - NO public transportation without another adult if you receive anesthesia. - We recommend that an adult stay with you for 24 hours following discharge. - We also recommend that you do not drive, make important decision, drink alcoholic beverages, or take any drugs that were not prescribed by your health care provider for at least 24 hours after your discharge time. For Pediatric surgeries, we recommend two adults accompany the child home. Follow any additional instructions given to you from your surgeon. If you or anyone in your household have experienced Covid symptoms in the past week, please notify your surgeon or the nurse liaison at the phone number below for possible testing. Telephone instructions given to ____PT and asked if any additional questions and then verbalized understanding. Patient advised to call surgeon office or pre surgery nurse liaison [phone] if any additional questions.
--- NOTE | 2022-02-24 15:11 | SUR.PREOP ---
SPOKE WITH PT. PT INFORMED TO CALL PRIOR TO ENTERING THE BUILDING, GIVEN LUCINDAS PHONE NUMBER. PT STATES UNDERSTANDING.
[2022-02-25] VITALS (11 sets, daily range): BP systolic 127–189; BP diastolic 72–97; PULSE 54–71; RESP 12–18; TEMP 36.9–37.3; O2SAT 96–100
--- NOTE | ~2022-02-25 | XR_ITS ---
EXAMINATION: XR fluoroscopy no charge DATE: 02/25/2022 11:56 INDICATION: Prostate cancer. Bladder neck contracture. Hydronephrosis. TECHNIQUE: 2 intraoperative fluoroscopic views of the abdomen and pelvis were obtained. COMPARISON: CT abdomen and pelvis 02/05/2022 FINDINGS: There is no visible urolithiasis. IMPRESSION: 1. No visible urolithiasis. Reviewed, dictated and finalized at location A. OSAL MANAGER IMPRESSION: 1. No visible urolithiasis.
--- NOTE | 2022-02-25 10:21 | ECG_ITS ---
Measurements Intervals [place] Rate: 68 P: 52 MS: 141 QRS: 2 QRSD: 104 T: 28 QT: 409 QTc: 437 Interpretive Statements SINUS RHYTHM NORMAL ECG COMPARED TO ECG 02/11/2020 14:11:35 SINUS RHYTHM NOW PRESENT Electronically Signed On 02-25-2022 13:41:33 RAG SHREDDER by Jordan Levy M.D.
[2022-02-25 10:51] LABS: Glucose Point of Care 137 mg/dl (65-105)
--- NOTE | 2022-02-25 11:01 | WPDHPUPDATE1 ---
History and Physical Update Update Date/Time: 02/25/22 11:01 History and Physical has been reviewed, including an updated exam of the patient. There are NO changes in the patient's condition. Risks, benefits, and alternatives have been discussed and questions answered. Patient agrees to proceed with procedure.
--- NOTE | 2022-02-25 11:02 | WPDANESEPPF ---
Anes - Initial Pre Proc Eval Procedure: Operation Date: 02/25/22 12:00 Proposed Procedures p Cystoscopy, Urethral Dilatation, Left Retrograde Pyelogram - Corona Sanchez MD Date/Time: 02/25/22 11:02 Surgeon: Corona Sanchez MD Pre Op Diagnosis: prostate cancer Patient Data Age: 71 Gender: M Height: 1.75 m Weight: 109 kg Last Vital Signs Temp 37.3 C 02/25/22 10:43 Pulse 70 02/25/22 10:43 Resp 16 02/25/22 10:43 BP 179/81 H 02/25/22 10:43 Pulse Ox 96 02/25/22 10:43 O2 Del Method Room Air 02/25/22 10:43 Allergies Allergy/AdvReac Type Severity Reaction Status Date / Time alogliptin Allergy Severe Swelling Verified 02/25/22 10:09 Ecjxtqy-QMK-CwI Reductase Allergy Severe Muscle Pain Verified 02/25/22 10:09 Inhibitor [Qkwjutd-Dgd-Krp Reductase Inhibitor] metformin AdvReac Mild Diarrhea Verified 02/25/22 10:09 NSAIDS (Non-Steroidal AdvReac Mild Gastrointestinal Verified 02/25/22 10:09 Anti-Inflamma Upset Home Medications Medication Instructions Recorded Confirmed Type aspirin 81 mg tablet,delayed 81 mg PO QNOON 02/07/19 02/25/22 History release (Aspir-) multivitamin with minerals-folic 1 tablet PO DAILY 02/11/20 02/25/22 History acid 0.4 mg tablet (Adult One Daily Multivitamin) omega 6-sap-onx-fish oil 60 mg-90 1 cap PO DAILY 02/11/20 02/25/22 History mg-500 mg capsule (Fish Oil) omeprazole 20 mg tablet,delayed 20 mg PO DAILY 02/11/20 02/25/22 History release atenolol 100 mg tablet 50 mg PO QPM #90 tabs 10/16/21 02/25/22 Rx levothyroxine 112 mcg tablet 112 mcg PO DAILY #90 tabs 02/01/22 02/25/22 Rx Tylenol # 3 1 tab-cap QID PRN Pain 02/19/22 02/25/22 History tamsulosin 0.4 mg capsule (Flomax) 0.4 mg PO HS 02/19/22 02/25/22 History Laboratory Tests 02/25/22 02/25/22 10:40 10:47 Sodium Pending Potassium Pending Chloride Pending Carbon Dioxide Pending Anion Gap Pending BUN Pending Creatinine Pending Estim Creat Clear Calc Pending Estimated GFR Pending Glucose Pending POC Capillary Glucose 137 mg/dl H mg/dl (65-105) Calcium Pending Patient hx anesthesia problems: post op nausea/vomiting Family hx anesthesia problems: none Results Review: All pre-operative results and documents have been reviewed as part of the pre-operative evaluation. [facility] Past Medical History Medical History Asbestos exposure Essential (primary) hypertension GERD (gastroesophageal reflux disease) History of TIA (transient ischemic attack) Hyperlipidemia, unspecified Hypothyroidism (acquired) Overweight (09/20/16) Prostate cancer Type 2 diabetes mellitus with diabetic neuropathy, without long-term current use of insulin Surgical History Surgical History H/O prostatectomy History of tonsillectomy Social History Social History Smoking status: Never smoker Second hand tobacco smoke exposure: No Alcohol intake: former Alcohol use details: QUIT 2019 Substance use: never Substance use type: does not use Lack of Transportation: No Lack of Food: Never True Current Housing: I Have Housing Concerned About Future Housing: No Difficulty Paying Gas/Electric Bills: No Difficulty Paying for Meds: No Currently Unemployed: No Education: Associate Degree Difficulty w/ Childcare or Family Care: No Living arrangements: with family Gender identity (if verbalized by the patient): Male Sexual Orientation (if Verbalized by the Patient): Straight or Heterosexual Spiritual care concerns: No Anes - Eval Final PreProcedure Day of Procedure 02/25/22 11:02 Patient weight: obese Heart: regular rate and rhythm Lungs: decreased breath sounds Airway: Mall
[2022-02-25 11:08] LABS: Anion Gap 4 mmol/L (8-16); Blood Urea Nitrogen 24 mg/dL (9-20); Carbon Dioxide 29 mmol/L (22-30); Chloride 97 mmol/L (98-107); Estimated CRCL calculation 40 ml/min; Estimated Glomerular Filt Rate 37; Glucose 149 mg/dL (65-110); Potassium 3.9 mmol/L (3.4-5.0); Sodium 130 mmol/L (137-145)
[2022-02-25] MEDS: FAMOTIDINE 20 MG/2 ML VIAL IV PUSH (11:16)
[2022-02-25] MEDS: ONDANSETRON INJ 4 MG/2 ML VIAL IV PUSH (11:16)
[2022-02-25] MEDS: diphenhydrAMINE HCl INJ 50 MG/ML VIAL 12.5 MG IV PUSH (11:16)
[2022-02-25] MEDS: ceFAZolin 2 GM/D5W 50 ML 2 GM/50 ML BAG IVPB (11:21)
[2022-02-25] MEDS: DEXAMETHASONE SOD PHOS INJ 4 MG/ML VIAL IV PUSH (11:21)
[2022-02-25] MEDS: LIDOCAINE HCL 2% GEL UROJET 10 ML PKG MUCOUS MEM (11:38)
[2022-02-25] MEDS: LACTATED RINGERS 1,000 ML 30 ML IV CONT (11:59)
--- NOTE | 2022-02-25 12:19 | P.OP_ITS ---
Procedure Note - Detailed Date of Procedure 02/25/22 Pre-op Diagnosis Prostate cancer, bladder neck contracture, possible left ureteral stone Post-op Diagnosis Other (Bladder neck contracture) Procedure Performed Cystoscopy, dilatation of bladder neck contracture Surgeon Corona Sanchez MD Anesthesia General Description of Procedure patient is brought to the operative suite where he has prepped draped in routine sterile fashion while in dorsal lithotomy position after the uneventful induction of a general LMA anesthetic. 2% xylocaine jelly was introduced intraurethrally and allowed to stand for an appropriate period of time. Cystoscopy is undertaken with a 19 F rigid cystoscope. He has a tight bladder neck contracture which precludes passage of the cystoscope. There appears to be some recurrent neoplastic tissue at the bladder neck, additionally. I placed a 0.035 in guidewire into the bladder under fluoroscopy. I dilated the bladder from 10 F to 22 F with Amplatz dilators. I was then able to pass the cystoscope. His bladder mucosa appears to be without any hyperemia or evidence of neoplasm. Despite an exhaustive search I was unable to identify the ureteral orifice sees a. Under careful fluoroscopy, however, there was no evidence of a ureteral stone. Because of the density of this bladder neck contracture I opted to leave it indwelling 20 F [place] tip catheter which will plan to leave for 3- 4 days. Drains Yes Packing No Pathology None sent Complications No immediate complications Condition Stable
[2022-02-25 12:26] LABS: Glucose Point of Care 154 mg/dl (65-105)
[2022-02-25] MEDS: fentaNYL CITRATE INJ (*CRX) 100 MCG/2 ML VIAL 25 MCG IV PUSH ×2 (12:41→12:53)
[2022-02-25] MEDS: KETOROLAC 30 MG/ML VIAL (*BKC) IV PUSH (13:02)
== END 2022-02-25 14:25 | disposition home or self-care (01) ==
PROVIDERS: Anesthesiology; PCP Internal Medicine; Visit Provider Urology
PROC: 0T7D8ZZ Dilation of Urethra, Via Natural or Artificial Opening Endoscopic (ICD-10-PCS; CPT 52281; principal; 2022-02-25 12:00)
DX: N32.0 Bladder-neck obstruction (principal); I10 Essential (primary) hypertension; K21.9 Gastro-esophageal reflux disease without esophagitis; E03.9 Hypothyroidism, unspecified; E78.5 Hyperlipidemia, unspecified; E11.40 Type 2 diabetes mellitus with diabetic neuropathy, unspecified; Z86.73 Personal history of transient ischemic attack (TIA), and cerebral infarction without residual deficits; Z85.46 Personal history of malignant neoplasm of prostate; Z87.891 Personal history of nicotine dependence; E66.9 Obesity, unspecified; Z68.35 Body mass index [BMI] 35.0-35.9, adult; Z79.82 Long term (current) use of aspirin
CPT/HCPCS: 52000; 36415; 80048; 82948; 93005; 99199; A9270; C1726; C1758; C1769; J0690; J1100; J1200; J1885; J2250; J2405; J2704; J3010; J7120

== ENCOUNTER 2022-07-02 17:40 | Emergency (ER) | payer MEDICARE, SELFPAY ==
--- NOTE | ~2022-07-02 | CT_ITS ---
EXAMINATION: CT abdomen pelvis w con DATE: 07/02/2022 22:50 INDICATION: Gastrointestinal hemorrhage. TECHNIQUE: Computed tomography (CT) of the abdomen and pelvis was performed with 100 mL Omnipaque 350 intravenous contrast. Automated exposure control and iterative reconstruction technique were employe d. The dose-length product was 1218.83 mGy-cm. COMPARISON: CT abdomen and pelvis 02/05/2022, 01/16/2020 FINDINGS: The visualized portion of the lung bases demonstrate mild atelectasis. No pleural effusion. The heart size is normal. There are coronary artery calcifications. No pericardial effusion. There a re calcifications of the aortic valve. The liver is normal. There is a gallstone in the gallbladder, which is normal in size. The spleen, pancreas, adrenal glands, and right kidney are normal. There is mild atrophy of left kidney. There is a delayed and decreased left-sided contrast nephrogram. There i s moderate left hydronephrosis and hydroureter. There is a large mass of the prostate with invasion o f the rectum, bladder, and left ureteral orifice. There is prominent fat in right inguinal canal that may be a hernia. There is a 2.3 x 1.9 cm left external iliac node. There is atherosclerosis of abdom inal aorta. There is no free intraperitoneal fluid. There is moderate lumbar spondylosis. IMPRESSION: 1. Large mass of the prostate with invasion of the rectum, bladder, and left ureteral orifice, consis tent with primary malignancy. 2. Moderate left hydronephrosis and hydroureter. Mild left kidney atrophy. 3. Enlarged left external iliac lymph node, consistent with metastatic disease. Reviewed, dictated and finalized at location E. IMPRESSION: 1. Large mass of the prostate with invasion of the rectum, bladder, and left ur eteral orifice, consistent with primary malignancy. 2. Moderate left hydronephrosis and hydroureter. Mild left kidney atrophy. 3. Enlarged left external iliac lymph node, consistent with metastatic disease.
[2022-07-02 17:52] VITALS: BP 192/85; PULSE 57; RESP 16; TEMP 36.9; O2SAT 94
[2022-07-02 18:03] LABS: Basophils Percent Auto 0.4 % (0.2-1.2); Eosinophils Absolute Auto 0.1 K/mm3 (0-0.3); Eosinophils Percent Auto 0.7 % (0-4.4); Hematocrit 41.3 % (42.0-52.0); Hemoglobin 13.7 g/dL (14.0-18.0); Immature Granulocyte Absolute 0.03 K/mm3 (0.00-0.031); Immature Granulocyte Percent A 0.4 % (0-0.5); Lymphocytes Absolute Auto 1.28 K/mm3 (0.9-3.2); Lymphocytes Percent Auto 15.1 % (18.3-44.2); Mean Corpuscular HGB Conc 33.2 g/dl (32-36); Mean Corpuscular Hemoglobin 29.3 pg (26-34); Mean Corpuscular Volume 88.4 fl (80-100); Mean Platelet Volume 10.4 fl (7.4-10.4); Monocytes Absolute Auto 0.7 K/mm3 (0.1-0.6); Monocytes Percent Auto 8.2 % (2.6-8.5); Neutrophils Absolute Auto 6.4 K/mm3 (1.3-6.7); Neutrophils Percent Auto 75.2 % (45.5-73.1); Platelet Count Result 247 k/mm3 (150-375); Red Blood Count 4.67 M/mm3 (4.6-6.20); Red Cell Distribution Width 13.1 % (11.5-14.5); White Blood Count 8.5 K/mm3 (4.5-10.0)
[2022-07-02 18:13] LABS: Prothrombin Time 13.2 Seconds (11.1-14.7)
[2022-07-02 18:16] LABS: Alanine Aminotransferase 41 U/L (6-50); Albumin Level 4.3 g/dL (3.5-5.1); Alkaline Phosphatase 67 U/L (38-126); Anion Gap 9 mmol/L (8-16); Aspartate Amino Transferase 41 U/L (17-59); Bilirubin,Total 0.8 mg/dL (0.2-1.3); Blood Urea Nitrogen 21 mg/dL (9-20); Calcium 9.5 mg/dL (8.4-10.2); Carbon Dioxide 26 mmol/L (22-30); Chloride 102 mmol/L (98-107); Estimated CRCL calculation 49 ml/min; Estimated Glomerular Filt Rate 50; Glucose 118 mg/dL (65-110); Potassium 3.8 mmol/L (3.4-5.0); Sodium 137 mmol/L (137-145)
--- NOTE | 2022-07-02 20:29 | ED.GENADULT ---
HPI - General Adult General Chief complaint: GI Bleed <FÉLIX Mckenzie Last Filed: 07/03/22 02:48> Stated complaint: rectal bleeding <FÉLIX Mckenzie Last Filed: 07/03/22 02:48> Time Seen by Provider: 07/02/22 20:16 <Peña Ramirez PA-C - Last Filed: 07/03/22 02:48> Source: patient <FÉLIX Mckenzie Last Filed: 07/03/22 02:48> Mode of arrival: ambulatory <FÉLIX Mckenzie Last Filed: 07/03/22 02:48> Limitations: no limitations <FÉLIX Mckenzie Last Filed: 07/03/22 02:48> History of Present Illness HPI narrative: This is a 71-year-old male with PMH of prostate cancer, HTN, type 2 diabetes who presents the ED with chief complaint of diarrhea and bright red blood per rectum for 3 weeks. Patient states that he is following up with his GI doctor and having a colonoscopy on Tuesday, but feels like the bleeding was bad enough to come to the ER tonight. He reports some rectal pain due to the multiple episodes of diarrhea. States he has known hemorrhoids. Also reports some lightheadedness that has resolved once he is lying down. Additional complaints of hematuria without dysuria or frequency. Denies fevers, chills, abdominal pain, nausea, vomiting. <FÉLIX Mckenzie Last Filed: 07/03/22 02:48> Related Data Home medications: Home Medications Medication Instructions Recorded Confirmed multivitamin with minerals-folic 1 tablet PO DAILY 02/11/20 07/02/22 acid 0.4 mg tablet (Adult One Daily Multivitamin) omega 0-ruq-gcg-fish oil 60 mg-90 1 cap PO DAILY 02/11/20 07/02/22 mg-500 mg capsule (Fish Oil) omeprazole 20 mg tablet,delayed 20 mg PO DAILY 02/11/20 07/02/22 release <FÉLIX Mckenzie Last Filed: 07/03/22 02:48> Allergies/adverse reactions: Allergies Allergy/AdvReac Type Severity Reaction Status Date / Time alogliptin Allergy Severe Swelling Verified 07/02/22 17:52 Guizrub-XLI-LbL Reductase Allergy Severe Muscle Pain Verified 07/02/22 17:52 Inhibitor [Laauepn-Jqb-Qkg Reductase Inhibitor] metformin AdvReac Mild Diarrhea Verified 07/02/22 17:52 NSAIDS (Non-Steroidal AdvReac Mild Gastrointestinal Verified 07/02/22 17:52 Anti-Inflamma Upset <Peña Ramirez PA-C - Last Filed: 07/03/22 02:48> Review of Systems Review of Systems: CONSTITUTIONAL: Denies fever, chills, or sweats. EYES: Denies visual changes, redness, or discharge. ENT: Denies rhinorrhea, congestion, sore throat, or otalgia. CARDIOVASCULAR: Denies chest pain, palpitations, or edema. RESPIRATORY: Denies cough or dyspnea. GASTROINTESTINAL: See HPI GENITOURINARY: See HPI SKIN: Denies rash or itching. MUSCULOSKELETAL: Denies back pain, joint pain, or myalgia. NEUROLOGIC: Denies headache, numbness, dizziness, or weakness. PSYCHIATRIC: Denies anxiety or depression. <Peña Ramirez PA-C - Last Filed: 07/03/22 02:48> [facility] Past Medical History Medical History: Medical History (Updated 07/03/22 @ 00:43 by Peña Ramirez PA-C) Asbestos exposure Colon cancer screening Essential (primary) hypertension GERD (gastroesophageal reflux disease) Hemorrhoid History of TIA (transient ischemic attack) Hyperlipidemia, unspecified Hypothyroidism (acquired) Overweight (09/20/16) Prostate cancer Type 2 diabetes mellitus with diabetic neuropathy, without long-term current use of insulin <Peña Ramirez PA-C - Last Filed: 07/03/22 02:48> Surgical History Surgical History: Surgical History H/O prostatectomy History of tonsillectomy <Peña Ramirez PA-C - Last Filed: 07/03/22 02:48> Social History Social History: Social History Smoking status: Never smoker Second hand tobacco smoke exposure: No Alcohol intake: former Alcohol use details: QUIT 2019 Substance use: never Substance use type: does not use [place]
[2022-07-02 22:01] VITALS: BP 182/85; PULSE 56
[2022-07-02 22:04] VITALS: BP 178/93; PULSE 63
[2022-07-02 22:05] VITALS: BP 199/102; PULSE 70
[2022-07-02 23:41] VITALS: BP 191/112; PULSE 64; RESP 18; TEMP 36.6; O2SAT 98
[2022-07-03 00:30] LABS: Bacteria Urine None Seen /hpf; Non Pathogenic Casts 0-2; RBC Urine 51-100 /hpf (0-2); Squamous Epithelial Cell Urine None seen /hpf (Few); WBC Urine 0-5 /hpf
[2022-07-03 00:35] LABS: Appearance Urine Clear (Clear); Bilirubin Urine Negative (Negative); Blood Urine 3+ (Negative); Color Urine Yellow (Yellow); Glucose Urine UA Negative (Negative); Ketones Urine Negative (Negative); Leukocyte Esterase Ur Negative LEU/UL (Negative); Nitrate Urine Negative (Negative); Protein Urine 1+ mg/dL (Negative); Specific Grav Ur 1.007 (1.001-1.035); Urobilinogen Urine 0.2 mg/dL (<2.0); pH Urine 6.5 (5.0-9.0)
[2022-07-03 00:50] LABS: Add Urine Microscopic? YES
[2022-07-03 01:09] VITALS: BP 191/117; PULSE 88; RESP 15; TEMP 36.6; O2SAT 100
== END 2022-07-03 01:10 | disposition home or self-care (01) ==
PROVIDERS: Emergency Medicine; Emergency Provider Physician Assistant; PCP Family Medicine
DX: K62.5 Hemorrhage of anus and rectum (principal); C61 Malignant neoplasm of prostate; C77.5 Secondary and unspecified malignant neoplasm of intrapelvic lymph nodes; I10 Essential (primary) hypertension; E11.40 Type 2 diabetes mellitus with diabetic neuropathy, unspecified; E78.5 Hyperlipidemia, unspecified; E03.9 Hypothyroidism, unspecified; K21.9 Gastro-esophageal reflux disease without esophagitis; E66.3 Overweight; Z68.32 Body mass index [BMI] 32.0-32.9, adult; Z90.79 Acquired absence of other genital organ(s); Z86.73 Personal history of transient ischemic attack (TIA), and cerebral infarction without residual deficits
CPT/HCPCS: 36415; 74177; 80053; 81001; 85025; 85610; 85730; 86850; 86900; 86901; 99284; Q9967

== ENCOUNTER 2022-07-09 00:02 | Day surgery (SDC) | payer MEDICARE, SELFPAY ==
[2022-07-02 16:01] VITALS: BMI 35.8
--- NOTE | 2022-07-08 12:37 | PC.NURSE ---
Have spoken at length with patient several times regarding his concerns for this procedure. I have attempted to answer his questions and plan for his procedure to accommodate his needs. Pt is very nervous and concerned about the outcome. He states he is immuno-compromised and worried about exposure, I have assured him all staff will wear a mask, we have planned him to call prior to coming into waiting room and we will meet him there and bring him and his back to our pre-op room, Registration will come back and reg. him in pre-op, his will remain in our dept and will not need to wait in the pre-op area. Pt also expressed concern of PONV and I reassured him I looked up what meds were given in pre-op for prior procedures and this was passed onto anesthesia and is on his chart, he will have an opportunity to speak with anesthesia in pre-op also. We discussed his anxiety related to enema that he will received and what he was told that there is a tumor right inside his rectum that he is afraid will be punctured and cause any number of issues. I did let him know that I would pass this on to our project manager retail Iesha Medellin RN and she will talk with Dr. Donovan concerning this. I did reassure this patient that we are doing everything we can to provide him with a safe and efficient procedure.
[2022-07-09 13:12] VITALS: BP 175/67; PULSE 47; RESP 20; TEMP 36.2; O2SAT 98; BMI 31.3
--- NOTE | 2022-07-09 13:29 | WPDHPUPDATE1 ---
History and Physical Update Update Date/Time: 07/09/22 13:29 History and Physical has been reviewed, including an updated exam of the patient. There are NO changes in the patient's condition. Risks, benefits, and alternatives have been discussed and questions answered. Patient agrees to proceed with procedure.
[2022-07-09] MEDS: LACTATED RINGERS 1,000 ML 150 ML IV CONT (13:33)
--- NOTE | 2022-07-09 13:38 | WPDANESEPPF ---
Anes - Initial Pre Proc Eval Procedure: Operation Date: 07/09/22 14:45 Proposed Procedures p Flexible Sigmoidoscopy With Tissue Biopsy - Giancarlo White MD Date/Time: 07/09/22 13:38 Surgeon: Giancarlo White MD Pre Op Diagnosis: Prostate CA With Metastasis, IBS, Diarrhea Patient Data Age: 71 Gender: M Height: 1.75 m Weight: 96.3 kg Last Vital Signs Temp 97.1 F L 07/09/22 13:12 Pulse 47 L 07/09/22 13:12 Resp 20 07/09/22 13:12 BP 175/67 H 07/09/22 13:12 Pulse Ox 98 07/09/22 13:12 O2 Del Method Room Air 07/09/22 13:12 Allergies Allergy/AdvReac Type Severity Reaction Status Date / Time alogliptin Allergy Severe Swelling Verified 07/09/22 13:11 Qqgwsba-MUJ-WxA Reductase Allergy Severe Muscle Pain Verified 07/09/22 13:11 Inhibitor [Nclthzw-Kit-Agw Reductase Inhibitor] metformin AdvReac Mild Diarrhea Verified 07/09/22 13:11 NSAIDS (Non-Steroidal AdvReac Mild Gastrointestinal Verified 07/09/22 13:11 Anti-Inflamma Upset Home Medications Medication Instructions Recorded Confirmed Type multivitamin with minerals-folic 1 tablet PO DAILY 02/11/20 07/02/22 History acid 0.4 mg tablet (Adult One Daily Multivitamin) omega 6-rmy-eqb-fish oil 60 mg-90 1 cap PO DAILY 02/11/20 07/02/22 History mg-500 mg capsule (Fish Oil) omeprazole 20 mg tablet,delayed 20 mg PO DAILY 02/11/20 07/02/22 History release atenolol 100 mg tablet 50 mg PO QPM #90 tabs 10/16/21 07/02/22 Rx nateglinide 120 mg tablet 120 mg PO TID #90 tabs 05/24/22 07/02/22 Rx levothyroxine 112 mcg tablet See Rx Instructions .Route 06/21/22 07/02/22 Rx .COMPLEX #90 tabs hydrocortisone 2.5 % topical cream 1 applic RECTAL QHS PRN 07/01/22 07/02/22 Rx with perineal applicator hemorrhoids #30 grams (Anusol-HC) ondansetron HCl 4 mg tablet 4 mg PO Q6H PRN nausea and 07/01/22 07/02/22 Rx vomiting #7 tabs Patient hx anesthesia problems: none Family hx anesthesia problems: none Results Review: All pre-operative results and documents have been reviewed as part of the pre-operative evaluation. [facility] Past Medical History Medical History (Updated 07/05/22 @ 16:25 by Giancarlo White MD) Asbestos exposure Colon cancer screening Essential (primary) hypertension GERD (gastroesophageal reflux disease) Hemorrhoid History of TIA (transient ischemic attack) Hyperlipidemia, unspecified Hypothyroidism (acquired) Overweight (09/20/16) Prostate cancer Prostate cancer metastatic to intraabdominal lymph node Type 2 diabetes mellitus with diabetic neuropathy, without long-term current use of insulin Surgical History Surgical History H/O prostatectomy History of tonsillectomy Social History Social History Smoking status: Never smoker Second hand tobacco smoke exposure: No Alcohol intake: former Alcohol use details: QUIT 2019 Substance use: never Substance use type: does not use Lack of Transportation: No Lack of Food: Never True Current Housing: I Have Housing Concerned About Future Housing: No Difficulty Paying Gas/Electric Bills: No Difficulty Paying for Meds: No Currently Unemployed: No Education: Associate Degree Difficulty w/ Childcare or Family Care: No Living arrangements: with family Gender identity (if verbalized by the patient): Male Sexual Orientation (if Verbalized by the Patient): Straight or Heterosexual Spiritual care concerns: No Anes - Eval Final PreProcedure Day of Procedure 07/09/22 13:38 Patient weight: obese Heart: regular rate and rhythm Lungs: clear to auscultation Airway: Mallampati scale class III Neurological: alert and oriented Last oral intake: >/= 8 hours ASA classification: III Emergent: no Anesthetic plan: proceed Anesthesia type and monitoring: general GIVS and standar
[2022-07-09 13:54] VITALS: BP 134/73; PULSE 44; RESP 19; O2SAT 98
[2022-07-09 14:04] VITALS: BP 140/71; PULSE 46; RESP 20; O2SAT 97
[2022-07-09 14:14] VITALS: BP 142/78; PULSE 44; RESP 21; O2SAT 99
== END 2022-07-09 14:40 | disposition home or self-care (01) ==
PROVIDERS: PCP Family Medicine; Visit Provider Internal Medicine Gastroenterology
PROC: 0DJD8ZZ Inspection of Lower Intestinal Tract, Via Natural or Artificial Opening Endoscopic (ICD-10-PCS; CPT 45330; principal; 2022-07-09 14:45)
DX: C78.5 Secondary malignant neoplasm of large intestine and rectum (principal); I10 Essential (primary) hypertension; K21.9 Gastro-esophageal reflux disease without esophagitis; E78.5 Hyperlipidemia, unspecified; E03.9 Hypothyroidism, unspecified; E11.40 Type 2 diabetes mellitus with diabetic neuropathy, unspecified; Z86.73 Personal history of transient ischemic attack (TIA), and cerebral infarction without residual deficits; E66.9 Obesity, unspecified; Z68.31 Body mass index [BMI] 31.0-31.9, adult; Z85.46 Personal history of malignant neoplasm of prostate
CPT/HCPCS: 45331; 88305; J2405; J2704; J7120

== ENCOUNTER 2022-07-22 05:22 | Inpatient (IN) | payer OTHER, MEDICARE, SELFPAY ==
[2022-07-22] VITALS (19 sets, daily range): BP systolic 73–135; BP diastolic 37–71; PULSE 58–78; RESP 14–21; TEMP 36–38.1; O2SAT 95–100
--- NOTE | ~2022-07-22 | XR_ITS ---
Portable chest x-ray Comparison: 01/16/2020 Clinical History: Shortness of breath Findings: Lungs are clear, without focal consolidation or pleural effusion. Cardiomediastinal silho uette is stable. Bones and soft tissues are unremarkable. Impression: Clear lungs. Reviewed, dictated and finalized at location . Impression: Clear lungs.
--- NOTE | ~2022-07-22 | CT_ITS ---
Non-contrast Head CT History: Status post fall COMPARISON: 12/20/2014 Technique: Axial non-contrast imaging of the brain was performed. Dose reduction technique was used on this scan by utilizing automated exposure control and iterative reconstruction technique. The dose -length product (DLP) was 681.00 mGy-cm. Findings: There is no evidence of intracranial hemorrhage, mass lesion, or acute infarct. Brain par enchyma appears normal. The ventricles and subarachnoid spaces are normal in size. The calvarium ap pears normal. The visualized paranasal sinuses and mastoid air cells are clear. Impression: No significant abnormality seen. Reviewed, dictated and finalized at location . Impression: No significant abnormality seen.
--- NOTE | ~2022-07-22 | CT_ITS ---
Clinical Indication: Abdominal pain, dyspnea, metastatic prostate cancer CT Scan of the Chest, Abdomen, and Pelvis with Contrast: Technique: Contiguous sections were acquired throughout the chest, abdomen, and pelvis after intraven ous administration of 100 cc of Omnipaque 350. Dose reduction technique was used on this scan by claudai marieing automated exposure control and iterative reconstruction technique. The dose-length product (DL P) was 1603.00 mGy-cm. COMPARISON: 07/02/2022 Findings: There is no evidence of any significant mediastinal, hilar or axillary lymphadenopathy. The mediastin al soft tissues appear normal. No aortic aneurysm or dissection. No large central pulmonary embolus e vident. Coronary artery calcifications are present. There is no evidence of pleural or pericardial effusion. The lungs are clear. No pulmonary nodules or infiltrates are noted. The liver, spleen, pancreas, adrenals and right kidney are within normal limits. Calcified gallstone present. There is mild left hydroureteronephrosis. There are atherosclerotic calcifications of the ao rta. No lymphadenopathy. There is a large pelvic mass, similar to prior exam, measuring up to approximately 10.7 x 6.4 cm in t ransverse dimensions, which appears extensively involve the prostate gland, as well as invade anterio rly and to the urinary bladder as well as posteriorly involve the distal rectum. There is new soft ti ssue gas within the superior aspect of the mass, as well as small amount of soft tissue gas in the pa rarectal soft tissues in the left side (axial images 207-2 image 15 for example). There is mild incre ased inflammatory stranding about the superior aspect of the mass. No temo bowel obstruction identified. There is a 2.5 cm lymph node along the left external iliac sunday in, consistent with yogi metastasis (axial image 203). There is a 1.4 cm right pelvic sidewall lymph node (axial image 208). Impression: 10.7 x 6.4 cm pelvic mass is similar in overall extent to prior exam, extensively involving the prost ate gland, with anterior invasion into the urinary bladder as well as posterior direct involvement of the distal rectum. This probably represents primary prostate neoplasm versus less likely possibility of primary rectal carcinoma. Correlate with relevant clinical history. New soft tissue gas within the superior aspect of the mass, as well as small amount of soft tissue ga s in the left perirectal soft tissues, with increased inflammatory stranding. This could represent pe rforation of the rectal wall by invasive carcinoma versus superinfection/abscess, or possibly necroti c change. Mild left hydroureteronephrosis is similar to prior exam, likely related to obstruction of the distal left ureter by the aforementioned mass. 2.5 cm left external iliac chain lymph node, and 1.4 cm right pelvic sidewall lymph node, suspicious for yogi metastatic disease. No significant abnormality seen in the thorax. Cholelithiasis. Reviewed, dictated and finalized at location . Impression: 10.7 x 6.4 cm pelvic mass is similar in overall extent to prior exam, extensive ly involving the prostate gland, with anterior invasion into the urinary bladde r as well as posterior direct involvement of the distal rectum. This probably r epresents primary prostate neoplasm versus less likely possibility of primary r ectal carcinoma. Correlate with relevant clinical history. New soft tissue gas within the superior aspect of the mass, as well as small am ount of soft tissue gas in the left perirectal soft tissues, with increased inf lammatory stranding. This could represent perforation of the rectal wall by inv asive carcinoma versus superinfection/abscess, or possibly necrotic change. Mild left hyd
--- NOTE | ~2022-07-22 | CT_ITS ---
Noncontrast CT scan of the cervical spine Technique: Multiple contiguous axial [address] images of the cervical spine were obtained and rec onstructed in 2D sagittal and coronal planes on the acquisition scanner. Dose reduction technique was used on this scan by utilizing automated exposure control, adjustment of the mA and/or kV according to patient size. Clinical History: Pain Findings: No fractures or dislocations. There is moderate degenerative disc narrowing at C5-C6 and C 6-C7. There mild uncovertebral degenerative changes throughout the cervical spine. There is right mychal ral foraminal narrowing at C3-C4 related to right facet arthropathy. No prevertebral soft tissue swel ling. Impression: No fracture or subluxation of the cervical spine. Mild degenerative spondylosis, as above. Reviewed, dictated and finalized at [facility]. Impression: No fracture or subluxation of the cervical spine. Mild degenerative spondylosis, as above.
--- NOTE | 2022-07-22 05:32 | ECG_ITS ---
Measurements Intervals [place] Rate: 68 P: 54 [place]: 151 QRS: 2 QRSD: 102 T: 22 QT: 373 QTc: 398 Interpretive Statements SINUS RHYTHM VENTRICULAR TRIGEMINY INCOMPLETE RIGHT BUNDLE BRANCH BLOCK ABNORMAL ECG COMPARED TO ECG 02/25/2022 10:43:14 VENTRICULAR TRIGEMINY NOW PRESENT Electronically Signed On 07-22-2022 6:26:17 CDT by William Osuna D.O.
--- NOTE | 2022-07-22 05:38 | ED.GENADULT ---
HPI - General Adult General Chief complaint: Shortness of Breath/Dyspnea <Bhavin Putnam MD - Last Filed: 07/22/22 07:33> Stated complaint: FALL, GENERALIZED WEAKNESS, NAUSEA <Bhavin Putnam MD - Last Filed: 07/22/22 07:33> Time Seen by Provider: 07/22/22 07:39 <Bhavin Putnam MD - Last Filed: 07/22/22 07:33> History of Present Illness HPI narrative: This is a 71-year-old male history of metastatic prostate cancer presenting to the ED with chief complaint of weakness. Patient says he has been bleeding on of a rectal mass for the last several days. When he got to shower today he said that he felt dizzy and lightheaded and fell into the wall striking his head. He did not lose consciousness. He is not on blood thinners. At this time he is complaining of generalized weakness and shortness of breath. He is also complaining of abdominal pain. No fevers, chills productive cough/urinary symptoms. Oncologist - Kaylee Urologist - Daniel <Bhavin Putnam MD - Last Filed: 07/22/22 07:33> Related Data Home medications: Home Medications Medication Instructions Recorded Confirmed multivitamin with minerals-folic 1 tablet PO DAILY 02/11/20 07/02/22 acid 0.4 mg tablet (Adult One Daily Multivitamin) omega 8-jss-hkv-fish oil 60 mg-90 1 cap PO DAILY 02/11/20 07/02/22 mg-500 mg capsule (Fish Oil) omeprazole 20 mg tablet,delayed 20 mg PO DAILY 02/11/20 07/02/22 release <Bhavin Putnam MD - Last Filed: 07/22/22 07:33> Allergies/adverse reactions: Allergies Allergy/AdvReac Type Severity Reaction Status Date / Time alogliptin Allergy Severe Swelling Verified 07/09/22 13:11 Quwplxh-FUI-FnM Reductase Allergy Severe Muscle Pain Verified 07/09/22 13:11 Inhibitor [Edykcup-Ong-Eco Reductase Inhibitor] metformin AdvReac Mild Diarrhea Verified 07/09/22 13:11 NSAIDS (Non-Steroidal AdvReac Mild Gastrointestinal Verified 07/09/22 13:11 Anti-Inflamma Upset <Bhavin Putnam MD - Last Filed: 07/22/22 07:33> [facility] Past Medical History Medical History: Medical History (Updated 07/22/22 @ 06:43 by Bhavin Putnam MD) Asbestos exposure Colon cancer screening Essential (primary) hypertension GERD (gastroesophageal reflux disease) Hemorrhoid History of TIA (transient ischemic attack) Hyperlipidemia, unspecified Hypothyroidism (acquired) Overweight (09/20/16) Prostate cancer Prostate cancer metastatic to intraabdominal lymph node Type 2 diabetes mellitus with diabetic neuropathy, without long-term current use of insulin <Bhavin Putnam MD - Last Filed: 07/22/22 07:33> Surgical History Surgical History: Surgical History H/O prostatectomy History of tonsillectomy <Bhavin Putnam MD - Last Filed: 07/22/22 07:33> Social History Social History: Social History Smoking status: Never smoker Second hand tobacco smoke exposure: No Alcohol intake: former Alcohol use details: QUIT 2019 Substance use: never Substance use type: does not use Lack of Transportation: No Lack of Food: Never True Current Housing: I Have Housing Concerned About Future Housing: No Difficulty Paying Gas/Electric Bills: No Difficulty Paying for Meds: No Currently Unemployed: No Education: Associate Degree Difficulty w/ Childcare or Family Care: No Living arrangements: with family Gender identity (if verbalized by the patient): Male Sexual Orientation (if Verbalized by the Patient): Straight or Heterosexual Spiritual care concerns: No <Bhavin Putnam MD - Last Filed: 07/22/22 07:33> Exam Narrative: APPEARANCE: patient appears chronically unwell Head: atraumatic. EYES: EOMI, NOSE: Atraumatic NECK: Trachea midline RESPIRATORY: no increased rate of breathing, clear to auscultation CARDIOVASCULAR: RRR, mild +1
[2022-07-22 05:45] LABS: Basophils Percent Auto 0.2 % (0.2-1.2); Hematocrit 38.8 % (42.0-52.0); Hemoglobin 12.7 g/dL (14.0-18.0); Immature Granulocyte Absolute 0.05 K/mm3 (0.00-0.031); Immature Granulocyte Percent A 0.4 % (0-0.5); Lymphocytes Absolute Auto 0.38 K/mm3 (0.9-3.2); Lymphocytes Percent Auto 2.7 % (18.3-44.2); Mean Corpuscular HGB Conc 32.7 g/dl (32-36); Mean Corpuscular Hemoglobin 29.1 pg (26-34); Mean Platelet Volume 10.1 fl (7.4-10.4); Monocytes Absolute Auto 0.2 K/mm3 (0.1-0.6); Monocytes Percent Auto 1.4 % (2.6-8.5); Neutrophils Absolute Auto 13.5 K/mm3 (1.3-6.7); Neutrophils Percent Auto 95.3 % (45.5-73.1); Platelet Count Result 267 k/mm3 (150-375); Red Blood Count 4.36 M/mm3 (4.6-6.20); Red Cell Distribution Width 13.2 % (11.5-14.5); White Blood Count 14.2 K/mm3 (4.5-10.0)
[2022-07-22] MEDS: HYDROmorphone HCL INJ (*CRX) 1 MG/ML SYR IV PUSH ×2 (05:51→07:39)
[2022-07-22 05:54] LABS: Alanine Aminotransferase 30 U/L (6-50); Albumin Level 3.8 g/dL (3.5-5.1); Alkaline Phosphatase 63 U/L (38-126); Anion Gap 8 mmol/L (8-16); Aspartate Amino Transferase 34 U/L (17-59); Bilirubin,Total 3.3 mg/dL (0.2-1.3); Blood Urea Nitrogen 23 mg/dL (9-20); Calcium 8.9 mg/dL (8.4-10.2); Carbon Dioxide 24 mmol/L (22-30); Chloride 102 mmol/L (98-107); Estimated Glomerular Filt Rate 46; Glucose 148 mg/dL (65-110); Potassium 3.5 mmol/L (3.4-5.0); Sodium 134 mmol/L (137-145)
[2022-07-22 06:10] LABS: Lactic Acid Reflex 2.4 mmol/L (0.7-2.0)
[2022-07-22 06:20] LABS: INR 1.1; Prothrombin Time 14.9 Seconds (11.1-14.7)
[2022-07-22 06:21] LABS: Partial Thromboplastin Time 24.8 SECONDS (22.3-36.8)
[2022-07-22] MEDS: SODIUM CHLORIDE 0.9% IV 2,000 ML 999 ML IV CONT (06:36)
[2022-07-22 06:37] LABS: Influenza A QL RT-PCR Negative (Negative); Influenza B QL RT-PCR Negative (Negative); RSV RNA, RT-PCR Negative (Negative); SARS-CoV-2 RNA PCR Negative (Negative)
[2022-07-22 06:40] LABS: Lipase 64 U/L (23-300); Magnesium 1.5 mg/dL (1.6-2.3); Phosphorus 1.5 mg/dL (2.5-4.5)
[2022-07-22 06:42] LABS: NT Pro B Type Natriuretic Pept 1200 pg/mL (19.9-100)
[2022-07-22 06:50] LABS: Troponin I 0.017 ng/mL (0.000-0.034)
[2022-07-22] MEDS: SODIUM CHLORIDE 0.9% IV 1,000 ML 999 ML IV CONT ×2 (07:20→18:48)
--- NOTE | 2022-07-22 07:24 | PC.NURSE ---
CONSENT SIGNED BY FOR CENTRAL LINE BY DR ROJAS
[2022-07-22] MEDS: MAGNESIUM SULF 2 GM/WATER 50ML 2 GM/50 ML BAG IVPB (07:53)
[2022-07-22] MEDS: SIMETHICONE 125 MG CHEW TAB PO ×2 (07:58→14:57)
[2022-07-22] MEDS: LACTATED RINGERS 1,000 ML 150 ML IV CONT (08:33)
[2022-07-22 09:00] LABS: Reflex Lactic Acid Yes or No Add Lactic
--- NOTE | 2022-07-22 09:11 | PCCCNOTE ---
Late entry: Phone call received from Laith Mcmahon RN at 0720 to meet with patient and spouse about hospice. Met with patient and in ER room 8, educated on hospice, provided resource list of all hospice agencies. Family agreeable to [facility]. Called to [facility], they will have a nurse out w/in the hour, Rosalia. Fax'd requested ER note, Order and Facesheet. [id number] Rosalia at bedside, consents signed.
--- NOTE | 2022-07-22 11:42 | ADMGEN ---
This patient, Deandre Yoo, was admitted to [facility] Surg Room 319-01 at 1100. Patient/family oriented to hospital policies and general routines including ID bracelet, bed and alarms, visiting hours, pain management, procedures, bathroom and other care routines, personal items, smoking policy, room service/diet, and visiting hours. Information on how to activate the Rapid Response Team has been discussed. Patient/Family are encouraged to report perceived risks to care and to ask questions if they do not understand what they are told or what they should do.
[2022-07-22] MEDS: PROCHLORPERAZINE EDISYLATE 10 MG/2 ML VIAL IV PUSH (14:58)
--- NOTE | 2022-07-22 17:22 | PM.IMHP ---
H&P: HPI History of Present Illness Date/Time: 07/22/22 17:22 Chief Complaint: Uncontrolled Pelvic/Rectal Pain Narrative: this unfortunate 71-year-old gentleman was diagnosed with [place] 9 prostate cancer in late 2019. He underwent a radical prostatectomy. He recovered after about a year and was functioning well. However in April of 2022 he began to have some intermittent rectal bleeding Which she attributed to hemorrhoids. A few weeks ago he began to notice blood in his urine. On July 2049 underwent a colonoscopy that revealed prostate adenocarcinoma invading the rectum. CT scan revealed invasion of the bladder as well. He was actually quite functional until the last 48 hours when his appetite decline rapidly and he felt weaker and more tired. Yesterday he spent most of the day at a car [employer] car [place]. After he got home he was in severe pain 10/10 and extremely fatigued. He did not eat or drink much all day. He was unable to sleep during the night because of the pain. Pain is described as aching burning stabbing in the pelvis and perineum and radiating into the scrotum. Activity seems to worsen the pain and nothing seems to lessen Much at all. He did not have any pain medicine at home. He was having difficulty urinating was having urination and small amounts some urgency and frequency and dribbling. He also had intermittent blood in the urine. Today when he got out of bed he stumbled and fell. His was unable to get him up. EMS was summoned he was brought the emergency room. There he was found to have leukocytosis at 14,200, hemoglobin of 12.7, and creatinine of 1.5 with BUN of 23. His previous creatinine was as high as 1.8. CT scan of the abdomen pelvis revealed a proximally 10.5 x 6.5 cm mass in the pelvis invading both the bladder and the rectum. There was free air and the suggestion of necrosis versus abscess. He previous declined further surgery and hormonal therapy. He wished to be a DNR. Because of his worsening functional status and his unrelenting pain and his incurable prostate cancer, he and his as opted for palliative care on the inpatient hospice service. Their goal his for his appetite, strength, And pain control to improve adequately so that he can return home on oral medication. He requested a Matthew catheter due to his inability to adequately urinate. PPS upon admission 40. ROS: Denied chest pain. Does have dyspnea on exertion with ADLs. Denied abdominal pain but admits to pelvic pain and scrotal pain. Has nausea but no emesis. Poor appetite. Uncertain about weight loss. Has blood in urine and stool. Constipated. Urinary dribbling hesitancy frequency urgency. Notes intermittent sweats and chills. No documented fever. Generalized weakness nonfocal. No focal numbness. Review of Systems Review of Systems: All systems reviewed & are unremarkable except as noted in HPI and below PMFSH Past Medical History Medical History Asbestos exposure Colon cancer screening Essential (primary) hypertension GERD (gastroesophageal reflux disease) Hemorrhoid History of TIA (transient ischemic attack) Hyperlipidemia, unspecified Hypothyroidism (acquired) Overweight (09/20/16) Prostate cancer Prostate cancer metastatic to intraabdominal lymph node Type 2 diabetes mellitus with diabetic neuropathy, without long-term current use of insulin Surgical History Surgical History H/O prostatectomy History of tonsillectomy Family History Family History Father No problems noted. Mother No problems noted. Social History Social History Smoking status: Never smoker Second hand tobacco smoke exposure: No Alcohol intake: former A
[2022-07-22] MEDS: PIPERACILLN/TAZ 3.375GM/NS50ML 3.375 GM/50 ML BAG IVPB (19:54)
[2022-07-23 02:22] VITALS: PULSE 60; RESP 20; O2SAT 92
[2022-07-23] MEDS: PIPERACILLN/TAZ 3.375GM/NS50ML 3.375 GM/50 ML BAG IVPB ×4 (02:28→16:59)
[2022-07-23 08:00] VITALS: BP 105/52; PULSE 51; RESP 14; TEMP 36.1; O2SAT 100; O2SAT 96
[2022-07-23] MEDS: HYDROmorphone HCL INJ (*CRX) 1 MG/ML SYR IV PUSH ×2 (08:19→17:05)
[2022-07-23] MEDS: diazePAM INJ (*CRX) 10 MG/2 ML SYRINGE 5 MG IV PUSH ×2 (08:21→17:05)
--- NOTE | 2022-07-23 12:37 | PM.IMPN ---
Progress Note: A&P Assessment and Plan (1) Palliative care encounter: Code(s): Z51.5 - Encounter for palliative care Status: Acute Assessment and Plan: Meets inpatient hospice criteria due to requiring initiation of multiple potent oral and IV medications for control of mixed visceral and neuropathic pain. These include methadone, gabapentin, duloxetine, and hydromorphone. 07/22/2022 discussed with patient and at bedside that he likely has perforated rectum with early pelvic infection and that antibiotics alone may not be effective in controlling this. Discussed the risk of sepsis and inpatient . Zosyn IV ordered. NS 1000 ml bolus ordered. 07/22/2022 discussed that he may not be able to return home upon discharge from the hospital and that he may not leave the hospital alive. 07/23/2022 blood cultures positive with Gram-positive rods likely diphtheroids. Afebrile on Zosyn so will not add vancomycin. Discussed with ID pharmacist. Continue current palliative regimen. Completing day 1 Zosyn. Discussed with patient awaiting ID and sensitivities to choose oral antibiotic for discharge. 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 He understands. 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: Code(s): C61 - Malignant neoplasm of prostate; C77.2 - Secondary and unspecified malignant neoplasm of intra-abdominal lymph nodes Status: Acute (3) Leukocytosis: Code(s): D72.829 - Elevated white blood cell count, unspecified Status: Acute (4) Metastatic cancer: Code(s): C79.9 - Secondary malignant neoplasm of unspecified site Status: Acute (5) Type 2 diabetes mellitus with diabetic neuropathy, without long-term current use of insulin: Code(s): E11.40 - Type 2 diabetes mellitus with diabetic neuropathy, unspecified Status: Acute (6) Hypothyroidism (acquired): Code(s): E03.9 - Hypothyroidism, unspecified Status: Acute (7) GERD (gastroesophageal reflux disease): Code(s): K21.9 - Gastro-esophageal reflux disease without esophagitis Status: Acute Subjective Date/time seen: 07/23/22 12:37 Interval history: Feels much better. No fever for about 18 hours. Tolerating food. Appetite is improved. Able ambulate with walker more steadily. Pain is down to about a 4. Tolerating Matthew. Review of Systems Review of Systems: All systems reviewed & are unremarkable except as noted in HPI and below Exam Narrative: HEENT: PERRL, sclerae nonicteric, pharyngeal mucosa pink and intact NECK: No JVD, adenopathy, or thyromegaly CHEST: Clear to auscultation. Normal effort. HEART: NL S1/S2, regular, no murmur ABDOMEN: BS+, protuberant but soft, MILD HYPOGASTRIC TO BILATERAL LQ TENDERNESS EXTREMITIES: No cyanosis, edema, or clubbing NEUROLOGIC: CN intact and symmetric to inspection. 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 MUSCULOSKELETAL: Tone and strength symmetric. PSYCH: Alert. Oriented to person, place, and time. Objective Data Vital Signs Vital Signs: Vital Signs - 24 hr 07/22/22 18:40 07/22/22 18:30 07/22/22 23:00 Temperature 100.6 F H 100.6 F H Pulse Rate 75 Respiratory Rate Blood Pressure Pulse Oximetry 95 Oxygen Delivery CPAP Oxygen Flow Rate Fraction of Inspired Oxygen 21 07/22/22 22:55 07/22/22 22:00 07/23/22 02:22 Temperature 96.8 F L Pulse Rate 75 64 60 Respiratory Rate 17 18 20 Blood Pressure 98/49 L Pulse Oximetry 95 96 92 Oxygen Delivery CPAP CPAP Oxygen Flow Rate Fraction of Inspired Oxygen 07/23/22 08:00 07/23/22 08:00 Temperature 96.9 F L Pulse Rate 51 L Respiratory Rate 14 Blood Pressure 105/52 L Pulse Oximetry 100 96 Oxygen Delivery Nasal Cannula Oxygen Flow Rate 2 Fraction of Inspired Oxygen Intake/Output Intake/Output: Intake & Output 07/20/22 07/21/22 0
[2022-07-23] MEDS: methADONE HCL (*CRX) 5 MG TABLET 2.5 MG PO ×2 (13:10→21:14)
[2022-07-23 20:00] VITALS: BP 91/53; PULSE 66; RESP 20; TEMP 36.3; O2SAT 97
[2022-07-24] MEDS: PIPERACILLN/TAZ 3.375GM/NS50ML 3.375 GM/50 ML BAG IVPB ×3 (01:23→13:01)
[2022-07-24 08:00] VITALS: BP 115/69; PULSE 64; RESP 18; TEMP 36.2; O2SAT 99
[2022-07-24 08:30] VITALS: O2SAT 97
--- NOTE | 2022-07-24 08:34 | PC.NURSE ---
Pt is continuing to refuse all meds. Pt states that his pain is currently a 0/10. Pt further states that he wants IV pain meds. I explained again that he stated his pain is a 0 and we do not give pain meds when the pain is a 0 to which he retorted, What if it starts hurting? I explained yet again that we do not give pain meds when there is no pain. Pt then sardonically inquired, What if I said it was an 8? Can I have them now? to which I replied, you are not in pain as is evident by your demeanor and prior statements so no.
[2022-07-24] MEDS: methADONE HCL (*CRX) 5 MG TABLET 2.5 MG PO ×2 (13:02→21:23)
--- NOTE | 2022-07-24 13:05 | PC.NURSE ---
When assessing pt and passing meds, pt stated that he was not having any pain to speak of but primarily diarrhea. He asked if the antibiotics could be causing the diarrhea and again stated that he wasn't in any pain aside from the diarrhea. Pt did consent to taking the scheduled methadone but stated he did not want any IV pain meds or valium.
--- NOTE | 2022-07-24 16:28 | PM.IMPN ---
Progress Note: A&P Assessment and Plan (1) Palliative care encounter: Code(s): Z51.5 - Encounter for palliative care Status: Acute Assessment and Plan: Meets inpatient hospice criteria due to requiring initiation of multiple potent oral and IV medications for control of mixed visceral and neuropathic pain. These include methadone, gabapentin, duloxetine, and hydromorphone. 07/22/2022 discussed with patient and at bedside that he likely has perforated rectum with early pelvic infection and that antibiotics alone may not be effective in controlling this. Discussed the risk of sepsis and inpatient . Zosyn IV ordered. NS 1000 ml bolus ordered. 07/22/2022 discussed that he may not be able to return home upon discharge from the hospital and that he may not leave the hospital alive. 07/23/2022 blood cultures positive with Gram-positive rods likely diphtheroids. Afebrile on Zosyn so will not add vancomycin. Discussed with ID pharmacist. Continue current palliative regimen. Completing day 1 Zosyn. Discussed with patient awaiting ID and sensitivities to choose oral antibiotic for discharge. 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 He understands. 07/24 Gram POSITIVE rods in anaerobic BC only. Diarrhea due to tumor, Zosyn, doubt c diff. Probiotic, Imodium, vancomycin po ordered. Senna stopped. Reduce Zosyn per pt request. Continue analgesic regimen. Stop diazepam due to hallucinations and use prochlorperazine prn for anxiety as well as nausea. Try melatonin to help sleep. 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: Code(s): C61 - Malignant neoplasm of prostate; C77.2 - Secondary and unspecified malignant neoplasm of intra-abdominal lymph nodes Status: Acute (3) Leukocytosis: Code(s): D72.829 - Elevated white blood cell count, unspecified Status: Acute (4) Metastatic cancer: Code(s): C79.9 - Secondary malignant neoplasm of unspecified site Status: Acute (5) Type 2 diabetes mellitus with diabetic neuropathy, without long-term current use of insulin: Code(s): E11.40 - Type 2 diabetes mellitus with diabetic neuropathy, unspecified Status: Acute (6) Hypothyroidism (acquired): Code(s): E03.9 - Hypothyroidism, unspecified Status: Acute (7) GERD (gastroesophageal reflux disease): Code(s): K21.9 - Gastro-esophageal reflux disease without esophagitis Status: Acute Subjective Date/time seen: 07/24/22 16:28 Interval history: No fever since 07/22/22 at 18:40. Tolerating food. Appetite is improved. Able ambulate with walker. But more weak today. Matthew obstructed and had to be replaced overnight. Having diarrhea today, 5 times so far. Mild abdominal cramps. Some blood in stool and urine. Pelvic pain is 5/10, but he has not asked for any breakthrough hydromorphone. Diazepam caused him to hallucinate. [facility] as [facility] is unable to care for him. He has LTC insurance. Review of Systems Review of Systems: All systems reviewed & are unremarkable except as noted in HPI and below Exam Narrative: HEENT: PERRL, sclerae nonicteric, pharyngeal mucosa pink and intact NECK: No JVD, adenopathy, or thyromegaly CHEST: Clear to auscultation. Normal effort. HEART: NL S1/S2, regular, no murmur ABDOMEN: BS+, protuberant but soft, MILD HYPOGASTRIC TO BILATERAL LQ TENDERNESS EXTREMITIES: No cyanosis, edema, or clubbing NEUROLOGIC: CN intact and symmetric to inspection. Strength 5/5 sanitary chemist, 4/5 dorsiflexion and plantar flexion. MUSCULOSKELETAL: Tone and strength symmetric. PSYCH: Alert. Oriented to person, place, and time. Objective Data Vital Signs Vital Signs: Vital Signs - 24 hr 07/23/22 20:00 07/24/22 08:30 07/24/22 08:00 Temperature 97.3 F L 97.1 F L Pulse Rate 66 64 Respiratory Rate 20 18 Blood Pressure 91/53 L
[2022-07-24] MEDS: SACCHAROMYCES BOULARDII 250 MG CAPSULE PO (17:30)
[2022-07-24] MEDS: VANCOMYCIN ORAL 125 MG/2.5 ML SYRUP PO (17:30)
--- NOTE | 2022-07-24 18:17 | PC.NURSE ---
During evening med pass, I was attempting to give pt the probiotic and oral vanco newly prescribed by Dr. Wen. As I was explaining what the meds were pt interrupted and stated, It's not as if you are in [facility]. I don't trust anyone who is not in [facility]. I won't be taking those. I repeated what the meds were and why they were prescribed and asked pt to confirm that he was once again refusing the oral meds that he had insisted the doctor prescribe him. Pt's son was also in the room at this time and sternly said, What are you doing?! to the pt. Pt then agreed to take the meds while continuing to make snide remarks.
[2022-07-24 20:00] VITALS: BP 119/58; PULSE 56; PULSE 66; RESP 16; RESP 20; TEMP 36.4; O2SAT 91; O2SAT 92
[2022-07-24] MEDS: LOPERAMIDE HCL 2 MG CAPSULE PO (21:23)
[2022-07-24 22:05] VITALS: PULSE 66; RESP 20; O2SAT 92
--- NOTE | 2022-07-24 23:46 | PC.NURSE ---
Patient has refused antibiotics this evening. Patient states that the antibiotics are the cause of his diarrhea. Educated on the importance of antibiotic therapy. Administered Imodium for diarrhea. Attempted to reapproach patient with antibiotics after administration of Imodium. Patient continues to refused antibiotics. Patients attempted to talk with over importance of antibiotic therapy. Patient is continuing to decline at this time.
[2022-07-25] MEDS: LOPERAMIDE HCL 2 MG CAPSULE PO ×3 (00:16→12:09)
[2022-07-25 03:06] VITALS: PULSE 70; RESP 16; O2SAT 91
[2022-07-25] MEDS: methADONE HCL (*CRX) 5 MG TABLET 2.5 MG PO ×4 (06:35→23:36)
[2022-07-25 08:00] VITALS: BP 129/84; PULSE 73; RESP 18; TEMP 36.4; O2SAT 97; O2SAT 98
[2022-07-25] MEDS: SACCHAROMYCES BOULARDII 250 MG CAPSULE PO ×3 (08:01→16:31)
[2022-07-25 09:36] VITALS: O2SAT 92
[2022-07-25] MEDS: VANCOMYCIN ORAL 125 MG/2.5 ML SYRUP PO ×3 (12:09→23:36)
[2022-07-25] MEDS: PIPERACILLN/TAZ 3.375GM/NS50ML 3.375 GM/50 ML BAG IVPB (12:10)
--- NOTE | 2022-07-25 15:41 | PM.IMPN ---
Progress Note: A&P Assessment and Plan (1) Palliative care encounter: Code(s): Z51.5 - Encounter for palliative care Status: Acute Assessment and Plan: Meets inpatient hospice criteria due to requiring initiation of multiple potent oral and IV medications for control of mixed visceral and neuropathic pain. These include methadone, gabapentin, duloxetine, and hydromorphone. 07/22/2022 discussed with patient and at bedside that he likely has perforated rectum with early pelvic infection and that antibiotics alone may not be effective in controlling this. Discussed the risk of sepsis and inpatient . Zosyn IV ordered. NS 1000 ml bolus ordered. 07/22/2022 discussed that he may not be able to return home upon discharge from the hospital and that he may not leave the hospital alive. 07/23/2022 blood cultures positive with Gram-positive rods likely diphtheroids. Afebrile on Zosyn so will not add vancomycin. Discussed with ID pharmacist. Continue current palliative regimen. Completing day 1 Zosyn. Discussed with patient awaiting ID and sensitivities to choose oral antibiotic for discharge. 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 He understands. 07/24 Gram POSITIVE rods in anaerobic BC only. Diarrhea due to tumor, Zosyn, doubt c diff. Probiotic, Imodium, vancomycin po ordered. Senna stopped. Reduce Zosyn per pt request. Continue analgesic regimen. Stop diazepam due to hallucinations and use prochlorperazine prn for anxiety as well as nausea. Try melatonin to help sleep. 07/25/2022. Clostridium perfringens in 2/2 anaerobic BC bottles. Switched to PO Amoxiclav and stopped Zosyn. Continue PO Vanc. Switched from Imodium to Lomotil PRN for diarrhea. Increase Methadone to 2.5 mg PO q 6 hr. 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: Code(s): C61 - Malignant neoplasm of prostate; C77.2 - Secondary and unspecified malignant neoplasm of intra-abdominal lymph nodes Status: Acute (3) Leukocytosis: Code(s): D72.829 - Elevated white blood cell count, unspecified Status: Acute (4) Metastatic cancer: Code(s): C79.9 - Secondary malignant neoplasm of unspecified site Status: Acute (5) Type 2 diabetes mellitus with diabetic neuropathy, without long-term current use of insulin: Code(s): E11.40 - Type 2 diabetes mellitus with diabetic neuropathy, unspecified Status: Acute (6) Hypothyroidism (acquired): Code(s): E03.9 - Hypothyroidism, unspecified Status: Acute (7) GERD (gastroesophageal reflux disease): Code(s): K21.9 - Gastro-esophageal reflux disease without esophagitis Status: Acute Subjective Date/time seen: 07/25/22 15:41 Interval history: No fever since 07/22/22 at 18:40. Still with diarrhea, associated with lower abdominal cramps, urgency, bleeding. Tolerating urinary catheter, urine still bloody. Pelvic pain was 5/10 but now 7/10 after last episode of diarrhea, so now is ready for prn hydromorphone. He and would for him to go to [facility] instead of home as she is unable to care for him. He has LTC insurance. SW is working on placement at [facility], [email or web address], or [facility]. Review of Systems Review of Systems: All systems reviewed & are unremarkable except as noted in HPI and below Exam Narrative: HEENT: PERRL, sclerae nonicteric, pharyngeal mucosa pink and intact NECK: No JVD, adenopathy, or thyromegaly CHEST: Clear to auscultation. Normal effort. HEART: NL S1/S2, regular, no murmur ABDOMEN: BS+, protuberant but soft, MILD HYPOGASTRIC TO BILATERAL LQ TENDERNESS EXTREMITIES: No cyanosis, edema, or clubbing NEUROLOGIC: CN intact and symmetric to inspection. Strength 5/5 washer engineer helper, 4/5 dorsiflexion and plantar flexion. MUSCULOSKELETAL: Tone and strength symmetric. PSYCH: Alert. Oriented to person, place, and time. Objective Data Vital Signs Vital Signs: Vi
[2022-07-25] MEDS: DIPHENOXYLATE/ATROPINE (*CRX) 2.5 MG TABLET 1 TABLET PO (16:31)
[2022-07-25] MEDS: HYDROmorphone HCL INJ (*CRX) 1 MG/ML SYR IV PUSH (16:32)
[2022-07-25 20:00] VITALS: BP 126/90; PULSE 86; RESP 14; TEMP 36.1; O2SAT 97
[2022-07-26 01:15] VITALS: RESP 15; O2SAT 92
[2022-07-26] MEDS: VANCOMYCIN ORAL 125 MG/2.5 ML SYRUP PO (06:23)
[2022-07-26] MEDS: methADONE HCL (*CRX) 5 MG TABLET 2.5 MG PO ×4 (06:23→23:27)
[2022-07-26] MEDS: AMOXICILLIN/CLAVULANATE K 875-125 MG TAB 1 TABLET PO (08:43)
[2022-07-26] MEDS: SACCHAROMYCES BOULARDII 250 MG CAPSULE PO ×3 (08:43→17:03)
--- NOTE | 2022-07-26 16:21 | PM.IMPN ---
Progress Note: A&P Assessment and Plan (1) Palliative care encounter: Code(s): Z51.5 - Encounter for palliative care Status: Acute Assessment and Plan: Meets inpatient hospice criteria due to requiring initiation of multiple potent oral and IV medications for control of mixed visceral and neuropathic pain. These include methadone, gabapentin, duloxetine, and hydromorphone. 07/22/2022 discussed with patient and at bedside that he likely has perforated rectum with early pelvic infection and that antibiotics alone may not be effective in controlling this. Discussed the risk of sepsis and inpatient . Zosyn IV ordered. NS 1000 ml bolus ordered. 07/22/2022 discussed that he may not be able to return home upon discharge from the hospital and that he may not leave the hospital alive. 07/23/2022 blood cultures positive with Gram-positive rods likely diphtheroids. Afebrile on Zosyn so will not add vancomycin. Discussed with ID pharmacist. Continue current palliative regimen. Completing day 1 Zosyn. Discussed with patient awaiting ID and sensitivities to choose oral antibiotic for discharge. 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 He understands. 07/24 Gram POSITIVE rods in anaerobic BC only. Diarrhea due to tumor, Zosyn, doubt c diff. Probiotic, Imodium, vancomycin po ordered. Senna stopped. Reduce Zosyn per pt request. Continue analgesic regimen. Stop diazepam due to hallucinations and use prochlorperazine prn for anxiety as well as nausea. Try melatonin to help sleep. 07/25/2022. Clostridium perfringens in 2/2 anaerobic BC bottles. Switched to PO Amoxiclav and stopped Zosyn. Continue PO Vanc. Switched from Imodium to Lomotil PRN for diarrhea. Increase Methadone to 2.5 mg PO q 6 hr. 07/26/22 Stopped Vanc and duloxetine per Mr. Yoo's request. Schedule Lomotil QID and continue prn. Awaiting NH acceptance at [place] or [place] as [facility] and [facility] could not accept him. 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: Code(s): C61 - Malignant neoplasm of prostate; C77.2 - Secondary and unspecified malignant neoplasm of intra-abdominal lymph nodes Status: Acute (3) Leukocytosis: Code(s): D72.829 - Elevated white blood cell count, unspecified Status: Acute (4) Metastatic cancer: Code(s): C79.9 - Secondary malignant neoplasm of unspecified site Status: Acute (5) Type 2 diabetes mellitus with diabetic neuropathy, without long-term current use of insulin: Code(s): E11.40 - Type 2 diabetes mellitus with diabetic neuropathy, unspecified Status: Acute (6) Hypothyroidism (acquired): Code(s): E03.9 - Hypothyroidism, unspecified Status: Acute (7) GERD (gastroesophageal reflux disease): Code(s): K21.9 - Gastro-esophageal reflux disease without esophagitis Status: Acute Subjective Date/time seen: 07/26/22 16:21 Interval history: Still with diarrhea about 6 times today. Liquid and explosive. Mild abdominal cramps. About 5% better. Pain fluctuates between 5-6/10. Wishes to d/c vanc, duloxetine. Willing to schedule Lomotil. Review of Systems Review of Systems: All systems reviewed & are unremarkable except as noted in HPI and below Exam Narrative: HEENT: PERRL, sclerae nonicteric, pharyngeal mucosa pink and intact NECK: No JVD, adenopathy, or thyromegaly CHEST: Clear to auscultation. Normal effort. HEART: NL S1/S2, regular, no murmur ABDOMEN: BS+, protuberant but soft, MILD HYPOGASTRIC TO BILATERAL LQ TENDERNESS EXTREMITIES: No cyanosis, edema, or clubbing NEUROLOGIC: CN intact and symmetric to inspection. Strength 5/5 button spindler, 4/5 dorsiflexion and plantar flexion. MUSCULOSKELETAL: Tone and strength symmetric. PSYCH: Alert. Oriented to person, place, and time. Objective Data Vital Signs Vital Signs: Vital Signs - 24 hr 07/25/22 20:00
[2022-07-26] MEDS: DIPHENOXYLATE/ATROPINE (*CRX) 2.5 MG TABLET 1 TABLET PO ×2 (17:03→23:27)
[2022-07-26 20:00] VITALS: BP 123/83; PULSE 84; RESP 18; TEMP 36.3; O2SAT 97
[2022-07-27] MEDS: methADONE HCL (*CRX) 5 MG TABLET 2.5 MG PO ×3 (05:46→17:55)
[2022-07-27] MEDS: DIPHENOXYLATE/ATROPINE (*CRX) 2.5 MG TABLET 1 TABLET PO ×3 (05:46→17:55)
[2022-07-27 08:00] VITALS: BP 144/72; PULSE 83; RESP 14; TEMP 36.1; O2SAT 98
[2022-07-27] MEDS: SACCHAROMYCES BOULARDII 250 MG CAPSULE PO ×3 (08:02→17:55)
[2022-07-27] MEDS: AMOXICILLIN/CLAVULANATE K 875-125 MG TAB 1 TABLET PO ×2 (08:02→20:30)
--- NOTE | 2022-07-27 13:19 | PM.IMPN ---
Progress Note: A&P Assessment and Plan (1) Palliative care encounter: Code(s): Z51.5 - Encounter for palliative care Status: Acute Assessment and Plan: Meets inpatient hospice criteria due to requiring initiation of multiple potent oral and IV medications for control of mixed visceral and neuropathic pain. These include methadone, gabapentin, duloxetine, and hydromorphone. 07/22/2022 discussed with patient and at bedside that he likely has perforated rectum with early pelvic infection and that antibiotics alone may not be effective in controlling this. Discussed the risk of sepsis and inpatient . Zosyn IV ordered. NS 1000 ml bolus ordered. 07/22/2022 discussed that he may not be able to return home upon discharge from the hospital and that he may not leave the hospital alive. 07/23/2022 blood cultures positive with Gram-positive rods likely diphtheroids. Afebrile on Zosyn so will not add vancomycin. Discussed with ID pharmacist. Continue current palliative regimen. Completing day 1 Zosyn. Discussed with patient awaiting ID and sensitivities to choose oral antibiotic for discharge. 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 He understands. 07/24 Gram POSITIVE rods in anaerobic BC only. Diarrhea due to tumor, Zosyn, doubt c diff. Probiotic, Imodium, vancomycin po ordered. Senna stopped. Reduce Zosyn per pt request. Continue analgesic regimen. Stop diazepam due to hallucinations and use prochlorperazine prn for anxiety as well as nausea. Try melatonin to help sleep. 07/25/2022. Clostridium perfringens in 2/2 anaerobic BC bottles. Switched to PO Amoxiclav and stopped Zosyn. Continue PO Vanc. Switched from Imodium to Lomotil PRN for diarrhea. Increase Methadone to 2.5 mg PO q 6 hr. 07/26/22 Stopped Vanc and duloxetine per Mr. Yoo's request. Schedule Lomotil QID and continue prn. Awaiting NH acceptance at [place] or [facility] as [facility] and [facility] could not accept him. 07/27/2022 Scheduled Lomitl tid and 2 q hs. Plan discharge to home with in-home care and Hospice 07/28/22. 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: Code(s): C61 - Malignant neoplasm of prostate; C77.2 - Secondary and unspecified malignant neoplasm of intra-abdominal lymph nodes Status: Acute (3) Leukocytosis: Code(s): D72.829 - Elevated white blood cell count, unspecified Status: Acute (4) Metastatic cancer: Code(s): C79.9 - Secondary malignant neoplasm of unspecified site Status: Acute (5) Type 2 diabetes mellitus with diabetic neuropathy, without long-term current use of insulin: Code(s): E11.40 - Type 2 diabetes mellitus with diabetic neuropathy, unspecified Status: Acute (6) Hypothyroidism (acquired): Code(s): E03.9 - Hypothyroidism, unspecified Status: Acute (7) GERD (gastroesophageal reflux disease): Code(s): K21.9 - Gastro-esophageal reflux disease without esophagitis Status: Acute Subjective Date/time seen: 07/27/22 13:19 Interval history: Still with diarrhea about hourly. Liquid and explosive. Mild abdominal cramps. Less urgent and explosive. Pain fluctuates between 5-6/10. Review of Systems Review of Systems: All systems reviewed & are unremarkable except as noted in HPI and below Exam Narrative: HEENT: PERRL, sclerae nonicteric, pharyngeal mucosa pink and intact NECK: No JVD, adenopathy, or thyromegaly CHEST: Clear to auscultation. Normal effort. HEART: NL S1/S2, regular, no murmur ABDOMEN: BS+, protuberant but soft, MILD HYPOGASTRIC TO BILATERAL LQ TENDERNESS EXTREMITIES: No cyanosis, edema, or clubbing NEUROLOGIC: CN intact and symmetric to inspection. Strength 5/5 repairer engine production, 4/5 dorsiflexion and plantar flexion. MUSCULOSKELETAL: Tone and strength symmetric. PSYCH: Alert. Oriented to person, place, and time. Objective Data Vital Signs Vital Signs: V
[2022-07-27 20:00] VITALS: BP 171/96; PULSE 94; RESP 20; TEMP 36.2; O2SAT 99
[2022-07-27] MEDS: HYDROmorphone HCL INJ (*CRX) 1 MG/ML SYR IV PUSH (20:26)
[2022-07-27] MEDS: DIPHENOXYLATE/ATROPINE (*CRX) 2.5 MG TABLET 2 TABLET PO (20:34)
[2022-07-27 22:30] VITALS: PULSE 71; RESP 18; O2SAT 93
[2022-07-28] MEDS: methADONE HCL (*CRX) 5 MG TABLET 2.5 MG PO ×5 (00:04→23:56)
[2022-07-28 01:22] VITALS: PULSE 69; RESP 17; O2SAT 93
[2022-07-28] MEDS: LEVOTHYROXINE SODIUM 112 MCG TABLET PO (06:25)
[2022-07-28 08:00] VITALS: BP 116/97; PULSE 54; RESP 12; TEMP 36.2; O2SAT 97
[2022-07-28] MEDS: SACCHAROMYCES BOULARDII 250 MG CAPSULE PO ×3 (08:58→16:02)
[2022-07-28 09:00] VITALS: PULSE 103; O2SAT 95
[2022-07-28] MEDS: DIPHENOXYLATE/ATROPINE (*CRX) 2.5 MG TABLET 1 TABLET PO (09:02)
--- NOTE | 2022-07-28 12:59 | PM.IMPN ---
Progress Note: A&P Assessment and Plan (1) Palliative care encounter: Code(s): Z51.5 - Encounter for palliative care Status: Acute Assessment and Plan: Meets inpatient hospice criteria due to requiring initiation of multiple potent oral and IV medications for control of mixed visceral and neuropathic pain. These include methadone, gabapentin, duloxetine, and hydromorphone. 07/22/2022 discussed with patient and at bedside that he likely has perforated rectum with early pelvic infection and that antibiotics alone may not be effective in controlling this. Discussed the risk of sepsis and inpatient . Zosyn IV ordered. NS 1000 ml bolus ordered. 07/22/2022 discussed that he may not be able to return home upon discharge from the hospital and that he may not leave the hospital alive. 07/23/2022 blood cultures positive with Gram-positive rods likely diphtheroids. Afebrile on Zosyn so will not add vancomycin. Discussed with ID pharmacist. Continue current palliative regimen. Completing day 1 Zosyn. Discussed with patient awaiting ID and sensitivities to choose oral antibiotic for discharge. 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 He understands. 07/24 Gram POSITIVE rods in anaerobic BC only. Diarrhea due to tumor, Zosyn, doubt c diff. Probiotic, Imodium, vancomycin po ordered. Senna stopped. Reduce Zosyn per pt request. Continue analgesic regimen. Stop diazepam due to hallucinations and use prochlorperazine prn for anxiety as well as nausea. Try melatonin to help sleep. 07/25/2022. Clostridium perfringens in 2/2 anaerobic BC bottles. Switched to PO Amoxiclav and stopped Zosyn. Continue PO Vanc. Switched from Imodium to Lomotil PRN for diarrhea. Increase Methadone to 2.5 mg PO q 6 hr. 07/26/22 Stopped Vanc and duloxetine per Mr. Yoo's request. Schedule Lomotil QID and continue prn. Awaiting OR acceptance at [place] or [place] as [facility] and [facility] could not accept him. 07/27/2022 Scheduled Lomitl tid and 2 q hs. Plan discharge to home with in-home care and Hospice 07/28/22. 07/28/2022 Declines discharge until diarrhea improved. He and spouse have concerns that in home care is not yet established. D/w patient. Increase Lomotil to 2 qid. Switch to amoxicillin 500mg q 6h. Add Pepto-Bismol QID. He declines gabapentin or cymbalta for neuropathic pain. Agress only to methadone and prn Dilaudid. 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: Code(s): C61 - Malignant neoplasm of prostate; C77.2 - Secondary and unspecified malignant neoplasm of intra-abdominal lymph nodes Status: Acute (3) Leukocytosis: Onset Date: ~07/28/22 Code(s): D72.829 - Elevated white blood cell count, unspecified Status: Acute (4) Metastatic cancer: Code(s): C79.9 - Secondary malignant neoplasm of unspecified site Status: Acute (5) Type 2 diabetes mellitus with diabetic neuropathy, without long-term current use of insulin: Code(s): E11.40 - Type 2 diabetes mellitus with diabetic neuropathy, unspecified Status: Acute (6) Hypothyroidism (acquired): Code(s): E03.9 - Hypothyroidism, unspecified Status: Acute (7) GERD (gastroesophageal reflux disease): Code(s): K21.9 - Gastro-esophageal reflux disease without esophagitis Status: Acute Subjective Date/time seen: 07/28/22 12:59 Interval history: Still with diarrhea about hourly. Liquid and explosive. Mild abdominal cramps. Mostly brown liquid. Pain fluctuates between 5-6/10. Review of Systems Review of Systems: All systems reviewed & are unremarkable except as noted in HPI and below Exam Narrative: HEENT: PERRL, sclerae nonicteric, pharyngeal mucosa pink and intact NECK: No JVD, adenopathy, or thyromegaly CHEST: Clear to auscultation. Normal effort. HEART: NL S1/S2, regular, no murmur ABDOMEN: BS+, protuberant but soft, MIL
[2022-07-28] MEDS: DIPHENOXYLATE/ATROPINE (*CRX) 2.5 MG TABLET 2 TABLET PO ×3 (14:34→23:55)
[2022-07-28] MEDS: BISMUTH SUBSALICYLATE 262 MG CHEWABLE TABLET 524 MG PO ×3 (16:01→23:55)
--- NOTE | 2022-07-28 19:25 | PC.NURSE ---
See Mar for medications that patient refused. MD aware.
[2022-07-28 20:00] VITALS: BP 154/97; PULSE 73; RESP 16; TEMP 35.6; O2SAT 99
[2022-07-28 22:15] VITALS: RESP 23; O2SAT 97
[2022-07-29] MEDS: methADONE HCL (*CRX) 5 MG TABLET 2.5 MG PO ×2 (06:27→12:27)
[2022-07-29] MEDS: AMOXICILLIN 500 MG CAPSULE PO (06:27)
[2022-07-29] MEDS: BISMUTH SUBSALICYLATE 262 MG CHEWABLE TABLET 524 MG PO ×2 (06:27→12:19)
[2022-07-29] MEDS: DIPHENOXYLATE/ATROPINE (*CRX) 2.5 MG TABLET 2 TABLET PO ×2 (06:27→12:27)
[2022-07-29 08:00] VITALS: BP 153/88; PULSE 69; RESP 22; TEMP 36.3; O2SAT 96
--- NOTE | 2022-07-29 08:06 | PM.DS ---
DS: Admitting Diagnosis Discharge Date 07/29/22 Admitting Diagnosis Metastatic Prostate Cancer DS: Discharge Diagnosis Discharge Diagnosis (1) Palliative care encounter: Code(s): Z51.5 - Encounter for palliative care Status: Acute Assessment and Plan: Meets inpatient hospice criteria due to requiring initiation of multiple potent oral and IV medications for control of mixed visceral and neuropathic pain. These include methadone, gabapentin, duloxetine, and hydromorphone. 07/22/2022 discussed with patient and at bedside that he likely has perforated rectum with early pelvic infection and that antibiotics alone may not be effective in controlling this. Discussed the risk of sepsis and inpatient . Zosyn IV ordered. NS 1000 ml bolus ordered. 07/22/2022 discussed that he may not be able to return home upon discharge from the hospital and that he may not leave the hospital alive. 07/23/2022 blood cultures positive with Gram-positive rods likely diphtheroids. Afebrile on Zosyn so will not add vancomycin. Discussed with ID pharmacist. Continue current palliative regimen. Completing day 1 Zosyn. Discussed with patient awaiting ID and sensitivities to choose oral antibiotic for discharge. 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 He understands. 07/24 Gram POSITIVE rods in anaerobic BC only. Diarrhea due to tumor, Zosyn, doubt c diff. Probiotic, Imodium, vancomycin po ordered. Senna stopped. Reduce Zosyn per pt request. Continue analgesic regimen. Stop diazepam due to hallucinations and use prochlorperazine prn for anxiety as well as nausea. Try melatonin to help sleep. 07/25/2022. Clostridium perfringens in 2/2 anaerobic BC bottles. Switched to PO Amoxiclav and stopped Zosyn. Continue PO Vanc. Switched from Imodium to Lomotil PRN for diarrhea. Increase Methadone to 2.5 mg PO q 6 hr. 07/26/22 Stopped Vanc and duloxetine per Mr. Yoo's request. Schedule Lomotil QID and continue prn. Awaiting OK acceptance at [facility] or [facility] as [facility], and [facility] could not accept him. 07/27/2022 Scheduled Lomitl tid and 2 q hs. Plan discharge to home with in-home care and Hospice 07/28/22. 07/28/2022 Declines discharge until diarrhea improved. He and spouse have concerns that in home care is not yet established. D/w patient. Increase Lomotil to 2 qid. Switch to amoxicillin 500mg q 6h. Add Pepto-Bismol QID. He declines gabapentin or cymbalta for neuropathic pain. Agrees only to methadone and prn Dilaudid. 07/29/2022 Agrees to discharge to [facility] in [place]. to private room. Meds and discharge plans reviewed with patient. 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: Code(s): C61 - Malignant neoplasm of prostate; C77.2 - Secondary and unspecified malignant neoplasm of intra-abdominal lymph nodes Status: Acute (3) Leukocytosis: Onset Date: ~07/28/22 Code(s): D72.829 - Elevated white blood cell count, unspecified Status: Acute (4) Metastatic cancer: Code(s): C79.9 - Secondary malignant neoplasm of unspecified site Status: Acute (5) Type 2 diabetes mellitus with diabetic neuropathy, without long-term current use of insulin: Code(s): E11.40 - Type 2 diabetes mellitus with diabetic neuropathy, unspecified Status: Acute (6) Hypothyroidism (acquired): Code(s): E03.9 - Hypothyroidism, unspecified Status: Acute (7) GERD (gastroesophageal reflux disease): Code(s): K21.9 - Gastro-esophageal reflux disease without esophagitis Status: Acute DS: Summary Hospital Course Reason for hospitalization: Uncontrolled pain due to metastatic prostate cancer Hospital Course: This unfortunate 71-year-old gentleman who underwent a radical prostatectomy in 2019 for Bony 9 prostate cancer her recurrent prostate cancer in his pelvis. 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
[2022-07-29] MEDS: SACCHAROMYCES BOULARDII 250 MG CAPSULE PO (09:44)
[2022-07-29 12:50] LABS: EDCOVIDSCREEN Negative (Negative)
== END 2022-07-29 14:00 | disposition hospice, inpatient (51) | DRG 722 ==
LOC: ANHED 10:04 → ANH3MEDSUR 10:26
PROVIDERS: Emergency Medicine; Admitting Provider Internal Medicine; Emergency Provider Emergency Medicine; PCP Family Medicine; Visit Provider Internal Medicine
DX: C61 Malignant neoplasm of prostate (principal); K63.1 Perforation of intestine (nontraumatic); K65.1 Peritoneal abscess; C77.2 Secondary and unspecified malignant neoplasm of intra-abdominal lymph nodes; B96.7 Clostridium perfringens [C. perfringens] as the cause of diseases classified elsewhere; D72.829 Elevated white blood cell count, unspecified; E11.40 Type 2 diabetes mellitus with diabetic neuropathy, unspecified; E78.5 Hyperlipidemia, unspecified; E03.9 Hypothyroidism, unspecified; I10 Essential (primary) hypertension; K21.9 Gastro-esophageal reflux disease without esophagitis; Z66 Do not resuscitate; Z90.79 Acquired absence of other genital organ(s); Z20.822 Contact with and (suspected) exposure to COVID-19; Z86.73 Personal history of transient ischemic attack (TIA), and cerebral infarction without residual deficits; Z79.84 Long term (current) use of oral hypoglycemic drugs; Z77.090 Contact with and (suspected) exposure to asbestos
CPT/HCPCS: 36415; 70450; 71045; 71275; 72125; 74174; 80053; 83605; 83690; 83735; 83880; 84100; 84484; 85025; 85610; 85730; 86850; 86900; 86901; 87040; 87077; 87426; 87637; 93005; 96361; 96365; 96367; 96375; 99285; A9270; C1751; C9803; J0131; J0780; J1170; J2543; J3360; J3475; J7030; J7120; Q9967